=== PATIENT | female | born 1945 | race Caucasian/White ===

== ENCOUNTER 2018-12-01 08:00 | Day surgery (SDC) | payer OTHER ==
[~2018-12-01] VITALS: Ht 152.4 cm; Wt 126.1 kg
[~2018-12-01 08:00] MED LIST: ALBU90OI INH; ALBU90OI6 INH; ALBU90OI61 INH; ASPI325 PO; ASPI325EC; ASPI81CH PO; ASPI81EC PO; BACITO TP; CEPH500 PO; CHOL10002 PO; CIPRO500 MG PO; CLOP75 PO; CODACE60 PO; CRANBERRY PO; CYAN500 PO; DOCU100 PO; Docusate Sodiu1 EACH PO; ERGO400 PO; FLUO10 PO; FLUO20 PO; GLIP10ER PO; Hair, Skin & N1 EACH PO; Humalog Mi100 UNIT/5; Humulin 70-30 V10 ML SC; INSU7030P SC; INSU7030P SUBQ; INSULANI SC; INSULIN 70/30 SC; Keflex500 MG PO; MAGNESIUM OXID500 MG PO; METF500 PO; METO10 PO; MIRALAX17 GM PO; MUPI2TO TOP; Motion Sickness25 M1 PO; NAPR220 PO; NOVOLIN 70100 UNIT/1; OMEP20ER PO; ONDA4ODT MM; ONDA8ODT MM; POTCHL20ER PO; PROZAC20 MG PO; Prilosec Otc20 MG PO; Pyridium100 MG PO; ROXICODONE5 MG PO; RXONDA4ODT MM; SULTRIDS PO; THEO300ER PO; TRAM50; TRIHYD253A PO; TRIHYD253B PO; TYLENOL WITH CODEINE; Vitamin D2000 UNIT PO
--- NOTE | 2018-12-01 09:04 | NUR ---
History, Chart, Medications and Allergies reviewed before start of procedure.Patient confirms NPO status and agrees with scheduled surgery. Patient states colon prep results clear.Lungs clear T/O to Auscultation.
--- NOTE | 2018-12-01 09:23 | NUR ---
12/01/18 0923 Ruby Valadez PROCEDURE ROOM ENDO #1.MONITOR INTACT WITH CONTINUOUS PULSE OXIMETRY AND INTERMITTENT BP.
--- NOTE | 2018-12-01 10:42 | NUR ---
Patient States Post-Procedure ride home has been arranged. Discharge instructions reviewed with patient. Patient verbalizes understanding. Copy given to patient to take home. Discharged via wheelchair to private car for ride home.
== END 2018-12-01 10:35 | disposition home or self-care (01) ==
LOC: ORSCMMR 08:00 → ORD 09:30 → ORSCMMR 09:30
PROVIDERS: Surgery
PROC: 0DJD8ZZ Inspection of Lower Intestinal Tract, Via Natural or Artificial Opening Endoscopic (ICD-10-PCS; principal; 2018-12-01 09:30)
DX: R19.4 Change in bowel habit (principal); K62.5 Hemorrhage of anus and rectum; Z86.010 Personal history of colon polyps; K64.8 Other hemorrhoids; I12.9 Hypertensive chronic kidney disease with stage 1 through stage 4 chronic kidney disease, or unspecified chronic kidney disease; E11.22 Type 2 diabetes mellitus with diabetic chronic kidney disease; N18.3 Chronic kidney disease, stage 3 (moderate); Z79.4 Long term (current) use of insulin; Z79.84 Long term (current) use of oral hypoglycemic drugs; I48.91 Unspecified atrial fibrillation; K21.9 Gastro-esophageal reflux disease without esophagitis; F17.210 Nicotine dependence, cigarettes, uncomplicated; J45.909 Unspecified asthma, uncomplicated; Z79.82 Long term (current) use of aspirin; Z79.899 Other long term (current) drug therapy; E66.01 Morbid (severe) obesity due to excess calories; Z68.43 Body mass index [BMI] 50.0-59.9, adult
CPT/HCPCS: 82947; J2250; J2704; J7120

== ENCOUNTER 2021-04-17 21:19 | Inpatient (IN) | payer OTHER ==
[~2021-04-17] VITALS: Ht 154.9 cm; Wt 111.4 kg
[~2021-04-17 21:19] MED LIST changes: -ASPI325 PO; -PROZAC20 MG PO; +Prozac20 MG PO
[2021-04-17 21:43] LABS: BASOPHILS ABSOLUTE AUTO 0.06 K/mm3 (0.00-0.23); BASOPHILS PERCENT AUTO 1 % (0-2); EOSINOPHILS ABSOLUTE AUTO 0.35 K/mm3 (0.00-0.68); EOSINOPHILS PERCENT AUTO 3 % (0-6); Hemoglobin 11.7 g/dL (11.5-16.0); IMMATURE GRAN ABSOLUTE AUTO 0.04 K/mm3 (0.00-0.10); IMMATURE GRAN PERCENT AUTO 0 % (0-1); LYMPHOCYTES ABSOLUTE AUTO 2.51 K/mm3 (0.84-5.20); LYMPHOCYTES PERCENT AUTO 22 % (21-46); MONOCYTES ABSOLUTE AUTO 1.16 K/mm3 (0.16-1.47); MONOCYTES PERCENT AUTO 10 % (4-13); Mean Corpuscular HGB 25.3 pg (26.0-34.0); Mean Corpuscular Volume 84 fL (80-100); Mean Platelet Volume 10.4 fL (9.1-12.4); NEUTROPHILS ABSOLUTE AUTO 7.21 K/mm3 (1.96-9.15); NEUTROPHILS PERCENT AUTO 64 % (41-73); Platelet Count 374 K/mm3 (150-400); RDW Coefficient Variation 16.3 % (11.7-14.2); RDW Standard Deviation 49.2 fL (35.1-46.3); Red Blood Cell Count 4.62 M/mm3 (3.80-5.20); White Blood Cell Count 11.33 K/mm3 (4.00-11.30)
[2021-04-17 22:02] LABS: Albumin, Blood 3.1 g/dL (3.4-5.0); Albumin/Globulin Ratio 0.6 (0.8-1.8); Bilirubin, Total 0.5 mg/dL (0.1-1.0); Bun/Creatinine Ratio 16.2 (12.0-20.0); Calcium, Blood 8.7 mg/dL (8.5-10.1); Creatinine, Blood 1.17 mg/dL (0.40-1.00); Globulin, Blood 5.1 g/dL (2.2-4.0); Potassium, Blood 2.9 mmol/L (3.5-5.5); Total Protein, Blood 8.2 g/dL (6.4-8.2)
[2021-04-18 00:12] LABS: Acetaminophen, Random <2.0 ug/mL (10.0-30.0); Ethanol (Alcohol), Blood, Med <3 mg/dL; Free Thyroxine 1.67 ng/dL (0.70-1.60); Salicylate <1.7 mg/dL (2.8-20.0)
[2021-04-18 00:19] LABS: Source, Urine Clean Catch
[2021-04-18 00:22] LABS: Bilirubin, Urine Neg (Neg); Blood, Urine 1+ (Neg); Glucose Qualitative, Urine Neg (Neg); Ketones, Urine 1+ (Neg); Leukocyte Esterase, Urine Neg (Neg); Nitrite, Urine Neg (Neg); Protein, Urine 3+ (Neg); Urobilinogen, Urine NORM (Normal)
[2021-04-18 00:24] LABS: Appearance, Urine Clear (Clear); Color, Urine Yellow (P-Yellow)
[2021-04-18 00:28] LABS: Bacteria Mod /hpf; Squamous Epithelial Cells Mod /hpf (Few); White Blood Cells, Urine 0-2 /hpf (0-5)
[2021-04-18 00:36] LABS: Influenza A, PCR NEGATIVE (NEGATIVE); Influenza B, PCR NEGATIVE (NEGATIVE); Resp Syncytial Virus, PCR NEGATIVE (NEGATIVE); SARS-Cov-2 (COVID-19) PCR, MMC NEGATIVE (NEGATIVE)
[2021-04-18 00:43] LABS: U Amphetamine Screen Not Detected; U Barbituate Screen Not Detected; U Benzodiazapine Screen Not Detected; U Buprenorphine Screen Not Detected; U Cannabinoids Screen Not Detected; U Cocaine Screen Not Detected; U Methadone Screen Not Detected; U Methamphetamine Screen Not Detected; U Opiates Screen Not Detected; U Oxycodone Screen Not Detected; U Phencyclidine Screen Not Detected; U Propoxyphene Screen Not Detected
[2021-04-18 04:59] LABS: BASOPHILS ABSOLUTE AUTO 0.05 K/mm3 (0.00-0.23); BASOPHILS PERCENT AUTO 0 % (0-2); EOSINOPHILS ABSOLUTE AUTO 0.09 K/mm3 (0.00-0.68); EOSINOPHILS PERCENT AUTO 1 % (0-6); Hematocrit 34.7 % (33.0-51.0); Hemoglobin 10.5 g/dL (11.5-16.0); IMMATURE GRAN ABSOLUTE AUTO 0.07 K/mm3 (0.00-0.10); IMMATURE GRAN PERCENT AUTO 1 % (0-1); LYMPHOCYTES ABSOLUTE AUTO 1.26 K/mm3 (0.84-5.20); LYMPHOCYTES PERCENT AUTO 10 % (21-46); MONOCYTES ABSOLUTE AUTO 1.09 K/mm3 (0.16-1.47); MONOCYTES PERCENT AUTO 9 % (4-13); Mean Corpuscular HGB 25.7 pg (26.0-34.0); Mean Corpuscular HGB Conc 30.3 g/dL (31.5-36.5); Mean Corpuscular Volume 85 fL (80-100); Mean Platelet Volume 10.9 fL (9.1-12.4); NEUTROPHILS ABSOLUTE AUTO 9.64 K/mm3 (1.96-9.15); NEUTROPHILS PERCENT AUTO 79 % (41-73); Platelet Count 317 K/mm3 (150-400); RDW Coefficient Variation 16.1 % (11.7-14.2); RDW Standard Deviation 49.4 fL (35.1-46.3); Red Blood Cell Count 4.09 M/mm3 (3.80-5.20)
[2021-04-18 05:12] LABS: Bun/Creatinine Ratio 18.4 (12.0-20.0); Calcium, Blood 8.1 mg/dL (8.5-10.1); Creatinine, Blood 1.14 mg/dL (0.40-1.00); Potassium, Blood 3.5 mmol/L (3.5-5.5)
[2021-04-18 05:41] LABS: CHOL/HDL RATIO 3.8; Cholesterol 126 mg/dL (50-200); HDL Cholesterol 33 mg/dL (>39); LDL/HDL RATIO 2.2; Low Density Lipoprotein Chol 73 mg/dL (0-110); Triglycerides 100 mg/dL (30-160); Very Low Density Lipoprot Chol 20 mg/dL (6-32)
--- NOTE | 2021-04-18 07:43 | NUR ---
SHIFT SUMMARY PATIENT ARRIVED TO ROOM 346 VIA STRETCHER AT 0355. SHE IS ABLE TO ANSWER ORIENTATION QUESTIONS APPROPRIATELY BUT IS OTHERWISE CONFUSED AND IMPULSIVE. HAD DIFFICULTY FOLLOWING DIRECTIONS. SHE HAD NO COMPLAINTS OF PAIN OR SHORTNESS OF BREATH. ONLY BECAME AGITATED WHEN NEEDING TO USE THE RESTROOM. NO ACUTE ISSUES NOTED OVERNIGHT. BED IN LOWEST POSITION WITH WHEELS LOCKED AND ALARM ON. CALL LIGHT WITHIN REACH. REPORT GIVEN TO ONCOMING RN.
--- NOTE | 2021-04-18 16:08 | NUR ---
SHIFT SUMMARY PT RESTING QUIETLY AT START OF SHIFT. WOKE EASILY FOR CARE. IV K+ INFUSING PER EMAR. PT CONFUSED AND IMPULSIVE; BED ALARM ON FOR SAFETY. MORBIDLY OBESE MAKING MOBILITY DIFFICULT. PT ASSIST UP TO BSC USING GB AND 2P ASSIST. PT HAS BEEN CONTINENT TO PRESENT; UP FREQUENTLY AT TIMES. SON AND GRANDSON HERE THIS AFTERNOON TO CK ON PT. UPDATE GIVEN. DR CHURCH IN TO SEE PT AND DISCUSS PLAN OF CARE WITH SON. PT PRESENTLY UP TO CHAIR AT BS. PT IS RESTLESS AND NO SOONER UP TO CHAIR AND SHE WANTS BACK INTO BED. PT PULLED IV TO LAC THIS AM. IV TO RW STILL PATENT AND SL. SON REMAINS IN RM AT BS. DENIED FURTHER NEEDS AT THIS TIME. CALL LT IN REACH.
--- NOTE | 2021-04-19 02:48 | NUR ---
PHYSICIAN COMMUNICATION CONTACTED DR REVELES TO NOTIFY HIM THAT THE PATIENT HADN'T VOIDED YET THIS SHIFT AND BLADDER SCAN SHOWED 455 ML URINE IN BLADDER. DR REVELES ORDERED FOR THE PATIENT TO BE STRAIGHT CATHED NOW AND BLADDER SCANNED AGAIN IN 6 HOURS.
[2021-04-19 05:01] LABS: Hematocrit 32.4 % (33.0-51.0); Hemoglobin 9.8 g/dL (11.5-16.0); Mean Corpuscular HGB 25.5 pg (26.0-34.0); Mean Corpuscular HGB Conc 30.2 g/dL (31.5-36.5); Mean Corpuscular Volume 84 fL (80-100); Mean Platelet Volume 10.3 fL (9.1-12.4); Platelet Count 308 K/mm3 (150-400); RDW Coefficient Variation 16.2 % (11.7-14.2); RDW Standard Deviation 48.6 fL (35.1-46.3); Red Blood Cell Count 3.84 M/mm3 (3.80-5.20); White Blood Cell Count 9.95 K/mm3 (4.00-11.30)
[2021-04-19 05:31] LABS: Albumin, Blood 2.8 g/dL (3.4-5.0); Albumin/Globulin Ratio 0.7 (0.8-1.8); Bilirubin, Total 0.5 mg/dL (0.1-1.0); Bun/Creatinine Ratio 14.4 (12.0-20.0); Creatinine, Blood 1.39 mg/dL (0.40-1.00); Globulin, Blood 4.2 g/dL (2.2-4.0); Potassium, Blood 3.3 mmol/L (3.5-5.5)
--- NOTE | 2021-04-19 06:26 | NUR ---
SHIFT SUMMARY PATIENT ALERT AND ORIENTED X2. HAS DIFFICULTY FOLLOWING DIRECTIONS. PATIENT MEDICATED PER EMAR FOR PAIN. WAS EXPERIENCING SOME SHORTNESS OF BREATH. PLACED PATIENT ON O2 FOR COMFORT. RT EVALUATED THE PATIENT. PATIENT HAD TO BE STRAIGHT CATHED FOR URINARY RETENTION. PATIENT COMPLAINED OF BEING DIZZY THIS MORNING AND BLOOD SUGAR FROM LAB DRAW WAS 67. PATIENT GIVEN SOME JUICE. BED IN LOWEST POSITION WITH WHEELS LOCKED AND ALARM ON. CALL LIGHT WITHIN REACH. REPORT GIVEN TO ONCOMING RN.
--- NOTE | 2021-04-19 18:32 | NUR ---
SHIFT SUMMARY PATIENT SITTING UP IN CHAIR EATING DINNER. PATIENT A&O X2. 2PA UP TO BSC AND CHAIR WITH WALKER AND GAIT BELT. PATIENT ON TELE A-FIB 90. PATIENT ON RA. UNPRODUCTIVE COUGH PRESENT. RECEIVING IV ANTIBIOTICS. FAMILY AT BEDSIDE T/O MOST OF SHIFT. BED IN LOW POSITION WITH CALL LIGHT IN REACH. WILL CONTINUE TO MONITOR.
[2021-04-20 08:29] LABS: Hematocrit 34.2 % (33.0-51.0); Hemoglobin 10.1 g/dL (11.5-16.0); Mean Corpuscular HGB 25.4 pg (26.0-34.0); Mean Corpuscular HGB Conc 29.5 g/dL (31.5-36.5); Mean Corpuscular Volume 86 fL (80-100); Mean Platelet Volume 10.2 fL (9.1-12.4); Platelet Count 323 K/mm3 (150-400); RDW Coefficient Variation 16.2 % (11.7-14.2); RDW Standard Deviation 50.6 fL (35.1-46.3); Red Blood Cell Count 3.98 M/mm3 (3.80-5.20); White Blood Cell Count 9.06 K/mm3 (4.00-11.30)
[2021-04-20 08:58] LABS: Albumin, Blood 2.8 g/dL (3.4-5.0); Albumin/Globulin Ratio 0.7 (0.8-1.8); Bilirubin, Total 0.5 mg/dL (0.1-1.0); Bun/Creatinine Ratio 14.3 (12.0-20.0); Calcium, Blood 8.3 mg/dL (8.5-10.1); Creatinine, Blood 1.33 mg/dL (0.40-1.00); Globulin, Blood 4.3 g/dL (2.2-4.0); Magnesium, Blood 1.7 mg/dL (1.6-2.4); Total Protein, Blood 7.1 g/dL (6.4-8.2)
--- NOTE | 2021-04-20 16:38 | NUR ---
SHIFT SUMMARY: PATIENT A&O X3. HAD SOME DIFFICULTY FOLLOWING DIRECTIONS. SHE IS PLEASANTLY CONFUSED. PT GOT UP TO THE COMMODE WITH A WALKER, GAIT BELT, AND ONE PERSON ASSIST. PT ON TELE A FIB. SHE IS RECIEVING IV ANTIBIOTCS. SHE HAD A COUGH WITH THIN LIQUIDS. PT WAS HARD OF SEEING OUT OF HER RIGHT EYE. DENIES ANY PAIN OR DISCOMFORT. BED AND CHAIR ALARM ARE SET. BED IS IN LOWEST POSITION WITH THE CALL LIGHT IN REACH.
--- NOTE | 2021-04-20 17:44 | NUR ---
REVIEWED DOCUMENTATION DOWN BY ELMER, STUDENT NURSE AND I AGREE WITH HER CHARTING ON THIS PATIENT. PATIENT HAD DIFFICULTY WITH THIN LIQUIDS THIS MORNING AND COUGHED FOLLOWING HER PILLS THIS AM. PATIENT WELL ONCE STRAWS WERE REMOVED AND PILLS GIVEN THIS EVENING WITH APPLESAUCE.
--- NOTE | 2021-04-21 04:05 | NUR ---
SHIFT SUMMARY A/OX2, PLEASANTLY CONFUSED. UP 1 ASSIST WITH FWW TO BSC. NONPRODUCTIVE COUGH NOTED. DENIES PAIN OR SOB. VSS, NO ACUTE CHANGES AT THIS TIME. BED IN LOWEST POSITION WITH CALL LIGHT IN REACH. WILL CONTINUE TO MONITOR AND REPORT TO ONCOMING RN.
[2021-04-21 08:59] LABS: Hematocrit 34.3 % (33.0-51.0); Hemoglobin 10.3 g/dL (11.5-16.0); Mean Corpuscular HGB 25.9 pg (26.0-34.0); Mean Corpuscular Volume 86 fL (80-100); Mean Platelet Volume 10.5 fL (9.1-12.4); Platelet Count 337 K/mm3 (150-400); RDW Coefficient Variation 16.2 % (11.7-14.2); RDW Standard Deviation 50.5 fL (35.1-46.3); Red Blood Cell Count 3.98 M/mm3 (3.80-5.20); White Blood Cell Count 9.87 K/mm3 (4.00-11.30)
[2021-04-21] MEDS ORDERED: LISI5 PO (09:36)
[2021-04-21] MEDS ORDERED: BASAGLAR K100 UNIT/3 SC (09:37)
[2021-04-21] MEDS ORDERED: FURO40 PO (09:37)
[2021-04-21] MEDS ORDERED: FLUT1DIS2 INH (09:38)
[2021-04-21] MEDS ORDERED: ATOR80 PO (11:33)
[2021-04-21] MEDS ORDERED: XARELTO20 MG PO (11:33)
[2021-04-21] MEDS ORDERED: AMOCLA875 PO (11:34)
--- NOTE | 2021-04-21 12:14 | NUR ---
Received referral from nurse vp care management (Giovanny Munoz) on 04/21/2021. Patient is to discharge 04/21/2021 with orders for home health and elected [facility]. Met with patient to further discuss the above. Patient is agreeable to the above. Discussed homebound status definition with patient. Patient verbalized understanding. Discussed what home health is vs what it is not (in home caregivers/housekeeping). Patient verbalized understanding. Discussed the next steps in the process of an initial assessment to determine frequency of visits. Again patient verbalized understanding. Offered a chance for patient to ask questions regarding the above of which there were none. Gathered all supporting documentation for referral (face sheet, face to face, med list, H&P, and most recent PT assessment) and sent to [facility] for review. No further interventions required. Sherrell Buck Referral Liaison
--- NOTE | 2021-04-21 16:57 | NUR ---
PATIENT D/C'D TO HOME WITH [employer]. DC INSTRUCTIONS AND EDUCATION DISCUSSED WITH PATIENT AND FAMILY AND COPY PROVIDED. RX MEDICATIONS FAXED TO [facility]. PATIENT DENIES ANY FURTHER QUESTIONS OR CONCERNS.
[2021-05-13] MEDS ORDERED: MACRODANTIN PO (14:48)
[2021-05-13] MEDS ORDERED: JANTOVEN5 M2 PO (14:49)
[2021-05-13] MEDS ORDERED: Ventolin/Prove6.7 GM INH (14:50)
[2021-05-13] MEDS ORDERED: POTCHL20ER PO (14:51)
== END 2021-04-21 16:58 | disposition home health service (06) | DRG 69 ==
LOC: ER 21:19 → MEDS 21:20 → ER 04-18 02:44 → MEDS 04-18 02:51
PROVIDERS: Emergency Medicine; Family Medicine; Internal Medicine; ADMIT Internal Medicine
DX: G45.9 Transient cerebral ischemic attack, unspecified (principal); G92.8 Other toxic encephalopathy; Z68.42 Body mass index [BMI] 45.0-49.9, adult; N39.0 Urinary tract infection, site not specified; G81.94 Hemiplegia, unspecified affecting left nondominant side; J45.909 Unspecified asthma, uncomplicated; M19.90 Unspecified osteoarthritis, unspecified site; Z51.5 Encounter for palliative care; Z20.822 Contact with and (suspected) exposure to COVID-19; F17.210 Nicotine dependence, cigarettes, uncomplicated; E66.9 Obesity, unspecified; I12.9 Hypertensive chronic kidney disease with stage 1 through stage 4 chronic kidney disease, or unspecified chronic kidney disease; N18.30 Chronic kidney disease, stage 3 unspecified; E11.22 Type 2 diabetes mellitus with diabetic chronic kidney disease; I48.91 Unspecified atrial fibrillation; E87.6 Hypokalemia; B96.20 Unspecified Escherichia coli [E. coli] as the cause of diseases classified elsewhere; B95.2 Enterococcus as the cause of diseases classified elsewhere; Z86.14 Personal history of Methicillin resistant Staphylococcus aureus infection; Z90.49 Acquired absence of other specified parts of digestive tract; Z90.89 Acquired absence of other organs; Z90.710 Acquired absence of both cervix and uterus; Z88.7 Allergy status to serum and vaccine; Z88.8 Allergy status to other drugs, medicaments and biological substances; Z79.82 Long term (current) use of aspirin; Z79.84 Long term (current) use of oral hypoglycemic drugs; Z79.899 Other long term (current) drug therapy
CPT/HCPCS: 0241U; 36415; 70496; 70498; 71045; 80048; 80053; 80061; 81001; 82140; 82947; 83036; 83605; 83735; 84145; 84439; 84443; 84484; 85025; 85027; 85651; 87077; 87086; 87186; 92610; 93005; 93010; 93306; 94640; 96365; 96372; 96375; 96376; 97116; 97162; 97166; 97530; 97535; 99285-25; A9270; G0378; G0480; J0295; J0696; J0780; J1630; J1644; J1650; J1815; J1885; J2405; J3411; J3475; J7030; J7050; Q9967

== ENCOUNTER → 2021-05-07 | Outpatient (CLI) | payer OTHER ==
[~2021-05-07] MED LIST changes: +AMOCLA875 PO; +ATOR80 PO; +BASAGLAR K100 UNIT/3 SC; +FLUT1DIS2 INH; +FURO40 PO; +LISI5 PO; +XARELTO20 MG PO
== END | disposition home or self-care (01) ==
LOC: LAB SHORT 12:00 → LAB 12:00
DX: R10.9 Unspecified abdominal pain (principal)
CPT/HCPCS: 87077; 87086; 87186

== ENCOUNTER 2021-06-12 08:19 | Emergency (ER) | payer OTHER ==
[~2021-06-12] VITALS: Ht 154.9 cm; Wt 113.8 kg
[~2021-06-12 08:19] MED LIST changes: +JANTOVEN5 M2 PO; +MACRODANTIN PO; +Ventolin/Prove6.7 GM INH
[2021-06-12] MEDS ORDERED: TRAM50 PO (09:21)
== END 2021-06-12 09:50 | disposition home or self-care (01) ==
LOC: ER 08:19
DX: S16.1XXA Strain of muscle, fascia and tendon at neck level, initial encounter (principal); J45.909 Unspecified asthma, uncomplicated; I12.9 Hypertensive chronic kidney disease with stage 1 through stage 4 chronic kidney disease, or unspecified chronic kidney disease; E11.22 Type 2 diabetes mellitus with diabetic chronic kidney disease; N18.30 Chronic kidney disease, stage 3 unspecified; K21.9 Gastro-esophageal reflux disease without esophagitis; Z79.01 Long term (current) use of anticoagulants; Z79.899 Other long term (current) drug therapy; Z79.4 Long term (current) use of insulin; X58.XXXA Exposure to other specified factors, initial encounter; Y92.9 Unspecified place or not applicable; Z79.82 Long term (current) use of aspirin; Z88.6 Allergy status to analgesic agent; Z88.7 Allergy status to serum and vaccine
CPT/HCPCS: 99283

== ENCOUNTER 2021-08-28 15:27 | Emergency (ER) | payer OTHER ==
[~2021-08-28] VITALS: Ht 154.9 cm; Wt 113.8 kg
[~2021-08-28 15:27] MED LIST changes: +TRAM50 PO
[2021-08-28 15:44] LABS: BASOPHILS ABSOLUTE AUTO 0.09 K/mm3 (0.00-0.23); BASOPHILS PERCENT AUTO 1 % (0-2); EOSINOPHILS ABSOLUTE AUTO 0.52 K/mm3 (0.00-0.68); EOSINOPHILS PERCENT AUTO 7 % (0-6); Hematocrit 27.4 % (33.0-51.0); Hemoglobin 8.5 g/dL (11.5-16.0); IMMATURE GRAN ABSOLUTE AUTO 0.02 K/mm3 (0.00-0.10); IMMATURE GRAN PERCENT AUTO 0 % (0-1); LYMPHOCYTES ABSOLUTE AUTO 1.45 K/mm3 (0.84-5.20); LYMPHOCYTES PERCENT AUTO 18 % (21-46); MONOCYTES PERCENT AUTO 12 % (4-13); Mean Corpuscular HGB 23.9 pg (26.0-34.0); Mean Corpuscular Volume 77 fL (80-100); Mean Platelet Volume 10.7 fL (9.1-12.4); NEUTROPHILS ABSOLUTE AUTO 4.97 K/mm3 (1.96-9.15); NEUTROPHILS PERCENT AUTO 62 % (41-73); Platelet Count 308 K/mm3 (150-400); RDW Coefficient Variation 18.6 % (11.7-14.2); RDW Standard Deviation 51.3 fL (35.1-46.3); Red Blood Cell Count 3.55 M/mm3 (3.80-5.20); White Blood Cell Count 8.05 K/mm3 (4.00-11.30)
[2021-08-28 15:57] LABS: Albumin, Blood 2.9 g/dL (3.4-5.0); Albumin/Globulin Ratio 0.7 (0.8-1.8); Bilirubin, Total 0.6 mg/dL (0.1-1.0); Bun/Creatinine Ratio 17.9 (12.0-20.0); Calcium, Blood 8.8 mg/dL (8.5-10.1); Creatinine, Blood 1.12 mg/dL (0.40-1.00); Globulin, Blood 4.2 g/dL (2.2-4.0); Potassium, Blood 3.7 mmol/L (3.5-5.5); Total Protein, Blood 7.1 g/dL (6.4-8.2)
[2021-11-05] MEDS ORDERED: CEPH500 PO (08:38)
== END 2021-08-28 17:51 | disposition home or self-care (01) ==
LOC: ER 15:27
PROVIDERS: Emergency Medicine
DX: R07.89 Other chest pain (principal); I12.9 Hypertensive chronic kidney disease with stage 1 through stage 4 chronic kidney disease, or unspecified chronic kidney disease; E11.22 Type 2 diabetes mellitus with diabetic chronic kidney disease; N18.30 Chronic kidney disease, stage 3 unspecified; J45.909 Unspecified asthma, uncomplicated
CPT/HCPCS: 71046; 80053; 83690; 84484; 85025; 93005; 93010; 99285-25

== ENCOUNTER 2021-10-12 07:06 | Inpatient (IN) | payer OTHER ==
[~2021-10-12] VITALS: Ht 157.5 cm; Wt 132.3 kg
[2021-10-12 07:50] LABS: Source, Urine Straight Cath
[2021-10-12 07:54] LABS: Bilirubin, Urine Neg (Neg); Blood, Urine 5+ (Neg); Glucose Qualitative, Urine Neg (Neg); Ketones, Urine Neg (Neg); Leukocyte Esterase, Urine 2+ (Neg); Nitrite, Urine Neg (Neg); Protein, Urine 3+ (Neg); Urobilinogen, Urine 1+ (Normal)
[2021-10-12 08:01] LABS: Appearance, Urine Hazy (Clear); Color, Urine Yellow (P-Yellow)
[2021-10-12 08:02] LABS: Bacteria Many /hpf; Red Blood Cells, Urine TNTC /hpf (0-2); Squamous Epithelial Cells Few /hpf (Few); White Blood Cells, Urine TNTC /hpf (0-5)
[2021-10-12 08:29] LABS: BASOPHILS ABSOLUTE AUTO 0.08 K/mm3 (0.00-0.23); BASOPHILS PERCENT AUTO 1 % (0-2); EOSINOPHILS ABSOLUTE AUTO 0.04 K/mm3 (0.00-0.68); EOSINOPHILS PERCENT AUTO 0 % (0-6); Hematocrit 29.3 % (33.0-51.0); Hemoglobin 9.2 g/dL (11.5-16.0); IMMATURE GRAN ABSOLUTE AUTO 0.06 K/mm3 (0.00-0.10); IMMATURE GRAN PERCENT AUTO 1 % (0-1); LYMPHOCYTES PERCENT AUTO 24 % (21-46); MONOCYTES ABSOLUTE AUTO 1.69 K/mm3 (0.16-1.47); MONOCYTES PERCENT AUTO 15 % (4-13); Mean Corpuscular HGB 24.4 pg (26.0-34.0); Mean Corpuscular HGB Conc 31.4 g/dL (31.5-36.5); Mean Corpuscular Volume 78 fL (80-100); Mean Platelet Volume 9.9 fL (9.1-12.4); NEUTROPHILS ABSOLUTE AUTO 6.52 K/mm3 (1.96-9.15); NEUTROPHILS PERCENT AUTO 59 % (41-73); Platelet Count 311 K/mm3 (150-400); RDW Coefficient Variation 19.6 % (11.7-14.2); RDW Standard Deviation 54.3 fL (35.1-46.3); Red Blood Cell Count 3.77 M/mm3 (3.80-5.20); White Blood Cell Count 10.99 K/mm3 (4.00-11.30)
[2021-10-12 08:37] LABS: Base Excess Venous -0.3 mmol/L; Bicarbonate Venous 24.4 mmol/L (24.0-30.0); PCO2 Venous 35.6 mmHg (38-42); pH Blood Venous 7.44 (7.34-7.37)
[2021-10-12 08:47] LABS: Albumin, Blood 2.8 g/dL (3.4-5.0); Albumin/Globulin Ratio 0.6 (0.8-1.8); Bilirubin, Direct 0.5 mg/dL (0.0-0.3); Bilirubin, Indirect 0.6 mg/dL (0.1-0.7); Bilirubin, Total 1.1 mg/dL (0.1-1.0); Bun/Creatinine Ratio 22.5 (12.0-20.0); Calcium, Blood 8.8 mg/dL (8.5-10.1); Creatinine, Blood 1.2 mg/dL (0.40-1.00); Globulin, Blood 4.8 g/dL (2.2-4.0); Magnesium, Blood 1.7 mg/dL (1.6-2.4); Potassium, Blood 4.3 mmol/L (3.5-5.5); Total Protein, Blood 7.6 g/dL (6.4-8.2)
[2021-10-12 08:50] LABS: Influenza A, PCR NEGATIVE (NEGATIVE); Influenza B, PCR NEGATIVE (NEGATIVE); Resp Syncytial Virus, PCR NEGATIVE (NEGATIVE); SARS-Cov-2 (COVID-19) PCR, MMC NEGATIVE (NEGATIVE)
[2021-10-12] MEDS ORDERED: [UNRECOGNIZED DRUG - CODE] PO (10:27)
[2021-10-12] MEDS ORDERED: ATENOLOL25 MG PO (10:27)
[2021-10-12] MEDS ORDERED: NEURONTIN300 MG PO (10:27)
[2021-10-12 11:17] LABS: Prothrombin Time Results >90.0 Sec (9.7-11.5)
[2021-10-12 11:20] LABS: International Normalized Ratio >10.00
--- NOTE | 2021-10-12 12:50 | NUR ---
PT ARRIVED TO UNIT FROM ER
--- NOTE | 2021-10-12 17:05 | NUR ---
SHIFT SUMMARY PT A&OX 4 AND IN PLEASENT MOOD SINCE ARRIVAL FROM ER. PT WORKED W/ PHYSICAL THERAPY THIS SHIFT, PT ABLE TO STAND PIVOT TO BSC. 1X. PT BECOMES TEARFUL PERIODICALLY, TALKING ABOUT 4 KIDS AND ONLY ONE WILL PROVIDE HELP. SHE STATES, "I WANT TO GO TO ASSISTED LIVING TO GIVE HIM A BREAK" CALL LIGHT W/IN REACH. VSS.
[2021-10-13 05:41] LABS: BASOPHILS ABSOLUTE AUTO 0.02 K/mm3 (0.00-0.23); BASOPHILS PERCENT AUTO 0 % (0-2); EOSINOPHILS PERCENT AUTO 0 % (0-6); Hematocrit 28.8 % (33.0-51.0); Hemoglobin 8.8 g/dL (11.5-16.0); IMMATURE GRAN ABSOLUTE AUTO 0.07 K/mm3 (0.00-0.10); IMMATURE GRAN PERCENT AUTO 1 % (0-1); LYMPHOCYTES ABSOLUTE AUTO 1.17 K/mm3 (0.84-5.20); LYMPHOCYTES PERCENT AUTO 13 % (21-46); MONOCYTES PERCENT AUTO 11 % (4-13); Mean Corpuscular HGB Conc 30.6 g/dL (31.5-36.5); Mean Corpuscular Volume 79 fL (80-100); Mean Platelet Volume 10.8 fL (9.1-12.4); NEUTROPHILS ABSOLUTE AUTO 6.69 K/mm3 (1.96-9.15); NEUTROPHILS PERCENT AUTO 75 % (41-73); Platelet Count 326 K/mm3 (150-400); RDW Coefficient Variation 19.8 % (11.7-14.2); RDW Standard Deviation 56.5 fL (35.1-46.3); Red Blood Cell Count 3.67 M/mm3 (3.80-5.20); White Blood Cell Count 8.95 K/mm3 (4.00-11.30)
[2021-10-13 06:08] LABS: Magnesium, Blood 1.9 mg/dL (1.6-2.4)
[2021-10-13 06:09] LABS: Albumin, Blood 2.6 g/dL (3.4-5.0); Anion Gap 10 mmol/L (6-16); Blood Urea Nitrogen 34 mg/dL (8-24); Bun/Creatinine Ratio 28.6 (12.0-20.0); CO2, Blood 21 mmol/L (21-32); Calcium, Blood 8.1 mg/dL (8.5-10.1); Chloride, Blood 101 mmol/L (98-108); Creatinine, Blood 1.19 mg/dL (0.40-1.00); Glomerular Filtration Rate 47 (60-); Glucose, Blood 337 mg/dL (70-99); Phosphorus, Blood 3.6 mg/dL (2.5-4.9); Potassium, Blood 4.6 mmol/L (3.5-5.5); Prothrombin Time Results >90.0 Sec (9.7-11.5); Sodium, Blood 132 mmol/L (136-145)
[2021-10-13 06:11] LABS: International Normalized Ratio >10.00
--- NOTE | 2021-10-13 18:38 | NUR ---
END OF SHIFT REPORT: PATIENT UP TO CHAIR, BEDSIDE COMMODE AND SHOWER CHAIR. PATIENT IS ABLE TO TOLERATE A STAND PIVOT OR A FEW STEPS WITH FWW AND GAIT BELT, 1-2 ASSIST. MINIMAL SHORTNESS OF BREATH NOTED WITH ACTIVITY. NO SHORTNESS OF BREATH NOTED AT REST. PATIENT STABLE ON ROOM AIR WITH SPO2 96-98%. PATIENT UP TO BSC FREQUENTLY WITH THE LASIX. PATIENT DENIES BURNING WITH VOIDING OR DIFFICULTY VOIDING. PATIENT CONTINENT. PATIENT HAS BRUSING ON HER UPPER BACK AND UPPER LEFT ARM. THEY ARE A DARK PURPLE. BRUISING MAINTAINED THE SAME SIZE THROUGHOUT THE SHIFT. NO SIGNS/SYMPTOMS OF BLEEDING DURING THE SHIFT. PATIENT REPORTS SADNESS AT TIMES AND IS TEARFUL. PATIENT EASILY CALMS WITH CONVERSATIONS ABOUT HER LIFE AND FAMILY. PATIENT REPORTS SHE IS SATISFIED WITH HER LIFE, BUT IS FRUSTRATED WITH HER LACK OF MOBILITY AND DECONDITIONING.
[2021-10-14 04:55] LABS: BASOPHILS ABSOLUTE AUTO 0.02 K/mm3 (0.00-0.23); BASOPHILS PERCENT AUTO 0 % (0-2); EOSINOPHILS ABSOLUTE AUTO 0.01 K/mm3 (0.00-0.68); EOSINOPHILS PERCENT AUTO 0 % (0-6); Hematocrit 28.5 % (33.0-51.0); Hemoglobin 8.8 g/dL (11.5-16.0); IMMATURE GRAN PERCENT AUTO 1 % (0-1); LYMPHOCYTES ABSOLUTE AUTO 1.52 K/mm3 (0.84-5.20); LYMPHOCYTES PERCENT AUTO 12 % (21-46); MONOCYTES ABSOLUTE AUTO 1.01 K/mm3 (0.16-1.47); MONOCYTES PERCENT AUTO 8 % (4-13); Mean Corpuscular HGB 24.2 pg (26.0-34.0); Mean Corpuscular HGB Conc 30.9 g/dL (31.5-36.5); Mean Corpuscular Volume 79 fL (80-100); Mean Platelet Volume 10.6 fL (9.1-12.4); NEUTROPHILS ABSOLUTE AUTO 9.87 K/mm3 (1.96-9.15); NEUTROPHILS PERCENT AUTO 79 % (41-73); NRBC ABSOLUTE 0.03 K/mm3 (0.00-0.02); NRBC Auto 0.2 /100 WBC (0.0-0.2); Platelet Count 356 K/mm3 (150-400); RDW Coefficient Variation 19.9 % (11.7-14.2); RDW Standard Deviation 56.1 fL (35.1-46.3); Red Blood Cell Count 3.63 M/mm3 (3.80-5.20); White Blood Cell Count 12.53 K/mm3 (4.00-11.30)
[2021-10-14 05:13] LABS: Magnesium, Blood 2.1 mg/dL (1.6-2.4)
[2021-10-14 05:14] LABS: Albumin, Blood 2.8 g/dL (3.4-5.0); Anion Gap 10 mmol/L (6-16); Blood Urea Nitrogen 40 mg/dL (8-24); Bun/Creatinine Ratio 31.2 (12.0-20.0); CO2, Blood 23 mmol/L (21-32); Calcium, Blood 8.5 mg/dL (8.5-10.1); Chloride, Blood 102 mmol/L (98-108); Creatinine, Blood 1.28 mg/dL (0.40-1.00); Glomerular Filtration Rate 43 (60-); Glucose, Blood 187 mg/dL (70-99); Phosphorus, Blood 3.3 mg/dL (2.5-4.9); Potassium, Blood 4.1 mmol/L (3.5-5.5); Sodium, Blood 135 mmol/L (136-145)
[2021-10-14 05:36] LABS: Prothrombin Time Results >90.0 Sec (9.7-11.5)
[2021-10-14 05:38] LABS: International Normalized Ratio >10.00
[2021-10-14 11:00] LABS: Percent Saturation 4.8 % (15.0-50.0)
--- NOTE | 2021-10-14 18:23 | NUR ---
SHIFT SUMMARY PT A&SO x3. VSS; SBP IN 130'S - 140'S, HR IN 70'S, O2 SATS >96% ON RA. PT DENIES SOB BUT STATES HER COUGH IS STILL PRESENT "BUT IMPROVING". PT UP TO BEDSIDE CHAIR MOST OF THE SHIFT. PT TO BSC FREQUENTLY W/LASIX; SBA W/FWW. PT TOLERATES WELL. NEW IV IN R FA PT "PULLED OUT OLD ONE LAST NIGHT BECAUSE IT WAS CATCHING ON EVERYTHING". NEW IV PATENT AND FLUSHES WELL. NO ACUTE CHANGES THROUGHOUT SHIFT. IMAGING SHOWS NO DVT. PT STILL STATES LEG AND CALF ARE TENDER. CALL LIGHT WITHIN REACH AND BED IN LOWEST POSITION.
--- NOTE | 2021-10-15 04:18 | NUR ---
SHIFT SUMMARY PT HAD AN UNEVENTFUL NIGHT. REMAINED IN THE RECLINER CHAIR THIS EVENING. SLEPT OFF AND ON. UP QUITE A BIT TO URINATE. PT TRANSFERED WELL WITH JUST A 1 ASSIST STAND PIVOT BUT REMAINS VERY WEAK AND SLIGHTLY UNSTEADY. PT IS LEGALLY BLIND, REPORTS THAT SHE ACCIDENTLY ATE SOME "LOTION" OR SOMETHING SIMILIAR TO JUST BEFORE THIS RN CAME ON TO SHIFT. TABLE CLEARED EXCEPT FOR DRINK CUP AND TISSUE BOX. PT HAS BEEN ON RA WITH O2 SATS > 90%. NAGGING COUGH WITH SMALL AMOUNTS OF BROWN/COLLADO SPUTUM CONTINUED INTERMITTENTLY THROUGH THE NIGHT. PT DID COMPLAIN OF PAIN TO RLE BUT ONLY WITH TOUCH OR MOVEMENT. MEDICATED X 1 W/ 50 MG ULTRAM WITH GOOD EFFECT. VITAL SIGNS STABLE. WILL CONTINUE TO MONITOR.
[2021-10-15 07:37] LABS: Prothrombin Time Results >90.0 Sec (9.7-11.5)
[2021-10-15 07:44] LABS: International Normalized Ratio >10.00
--- NOTE | 2021-10-15 18:37 | NUR ---
SHIFT SUMMARY PATIENT DENIES PAIN, NAUSEA, AND SHORTNESS OF BREATH. PATIENT IS A SBA WITH A FWW. PATIENT ABLE TO STAND WITHOUT ASSIST MULTIPLE TIMES THIS SHIFT. PT WORKED WITH PATIENT. PATIENT LUNCH CB 359, DR. FARRELL NOTIFIED, NEW ORDERS FOR LONG ACTING INSULIN 20U AT BEDTIME. PATIENT WAS WANTING INFORMATION ABOUT [facility] DIRECTED, TALKED WITH PATIENT AWHILE. PALLIATIVE CARE WAS GONE FOR THE DAY, BUT WILL CONTACT THEM TOMORROW FOR CONSULT. PATIENT IS EATING AND DRINKING WELL. PATIENT IS VERY PLEASANT AND COOPERATIVE WITH CARE.
--- NOTE | 2021-10-16 04:45 | NUR ---
SHIFT SUMMARY PT WAS RESTLESS THIS EVENING. ONLY SLEEPING MAYBE A FEW HOURS THROUGHOUT THE NIGHT. FREQUENT NAGGING COUGH WITH SMALL AMOUNTS OF BROWN/COLLADO SPUTUM. LUNG SOUNDS WHEEZY THROUGHOUT. PT CONTINUES TO REPORT PAIN TO RLE WITH MOVEMENT AND PLUERITIC PAIN FROM COUGHING. MEDICATED X 1 W/ ULTRAM. SON IN TO VISIT AT START OF SHIFT. PT DID WELL THIS EVENING STANDING WITH FWW MOSTLY INDEPENDENTLY AND PIVOT TRANFERING TO THE BSC. NO ACUTE CHANGES THIS EVENING. VITAL SIGNS STABLE.
[2021-10-16 05:39] LABS: Prothrombin Time Results 72.7 Sec (9.7-11.5)
[2021-10-16 06:10] LABS: International Normalized Ratio 7.93
--- NOTE | 2021-10-16 17:25 | NUR ---
SHIFT SUMMARY PATIENT DENIES PAIN, NAUSEA, AND SHORTNESS OF BREATH. PATIENT IS A SBA WITH A FWW. PATIENT FREQUENTLY USES BSC DUE TO DIURETICS. PATIENT AMBULATED IN ROOM WITH RN. PATIENT STRENGTH IMPROVING. PATIENT HOPEFUL TO GO HOME. PATIENT IS EATING AND DRINKING WELL. PATIENT CBG'S MUCH IMPROVED. PATIENT IS VERY PLEASANT AND COOPERATIVE WITH CARE.
--- NOTE | 2021-10-17 05:03 | NUR ---
SHIFT SUMMARY: PT IS ALERT AND ORIENTED WITH MINOR CONFUSION. PT IS CALM AND COOPERATIVE WITH CARE. PT IS A ONE PERSON ASSIST WITH FWW DURING AMBULATION AND TRANSFERS TO THE BSC. PT DENIES PAIN, NAUSEA, VOMITING, AND SOB. NO ACUTE CHANGES OR COMPLICATIONS THIS SHIFT. BED IN LOW POSITION, CALL LIGHT WITHIN REACH. WILL REPORT TO DAY NURSE.
[2021-10-17 05:48] LABS: International Normalized Ratio 3.46; Prothrombin Time Results 33.5 Sec (9.7-11.5)
--- NOTE | 2021-10-17 18:53 | NUR ---
SHIFT SUMMARY: PT A&0 PLESANT AND COOPERATIVE. PT WAS ABLE TO AMBULATE TO THE BATHROOM 1 PERSON ASSIST WITH FWW. PT WAS IN RECLINER THROUGHOUT SHIFT. PT MET WITH CARE MANAGEMENT TEAM TO HAVE HOME HEALTH AND A BEDSIDE CAMMODE BEFORE BEING DISCHARGED HOME. PT SIGNED A DOCUMENT TO ALLOW PHOTOS OF HER WOUND ON HER LEFT FRONT LE. PT RECEVIDED NEBULIZER TREATMENTS FOR WHEEZING AND COUGHING.PT RESTING IN BED WITH CALL WITHIN REACH.
--- NOTE | 2021-10-18 05:35 | NUR ---
SHIFT SUMMARY: PT IS ALERT AND ORIENTED WITH OCCASIONAL, MINOR CONFUSION. PT IS A STANDBY ASSIST TO THE BATHROOM WITH FWW. PT CALLS APPROPRIATELY. PT IS PLEASANT AND COOPERATIVE WITH CARE. AWAITING INSURANCE APPROVAL, MAY DC HOME WITH SON. NO ACUTE CHANGES OR COMPLICATIONS OVERNIGHT. BED IN LOW POSITION, CALL LIGHT WITHIN REACH. WILL CONTINUE TO MONITOR.
[2021-10-18 05:42] LABS: International Normalized Ratio 2.94; Prothrombin Time Results 28.8 Sec (9.7-11.5)
--- NOTE | 2021-10-18 11:51 | NUR ---
PHONE WITH SON: PT SON CALLED ADDRESSING THAT HE DIDN'T SEE PT PROGRESS WITH AMBULATION. SON NOT CLEAR ON DISCHARGE HOME. SON STATED HE NEEDS A RAMP FOR STAIRS AT HOME. SON STATED HE THOUGHT PT WAS BEING DISCHARGED TO THE [facility]. DR. RODRIGUES NOTIFED OF PT SONS CONCERNS AND PT WILL BE HELD IN HOSPITAL TILL CARE MANAGEMENT TEAM IS CONTACTED ON Tuesday09/18/21 FOR CARLIFICATION OF PLAN OF CARE.
--- NOTE | 2021-10-18 19:29 | NUR ---
SHIFT SUMMARY: PT A&O, HAPPY. PT AMBULATED TO THE BATHROOM THROUGHOUT SHIFT. PT SAT/SLEPT IN THE RECLINER THROUGHOUT SHIFT. PT SON CALLED DISCUSSING CONFUSION ON DISCHARGE ORDERS. DR. FARRELL NOTIFED ON THE SON NOT READY FOR MOM TO DISCHARGE HOME. CARE MANAGEMENT WILL BE CONTACTED ON CARE PLAN AND DOSCHARGE ARRANGEMENTS. PT STATED HER TONGUE HURT AND BURNED. DR. FARRELL ORDERED NYSTATIN SWISH AND SWALLOW 5ML ORDERED. PT SITTING IN RECLINER WITH CALL LIGHT WITHIN REACH.
--- NOTE | 2021-10-19 01:23 | NUR ---
SHIFT SUMMARY PLEASANT 76-YEAR-OLD FEMALE, A&O X4. CHANGED TO FULL CODE PER HER REQUEST. PERIPHERAL IV RIGHT FOREARM. ROOM AIR. STANDBY ASSIST WITH FWW. MEDS WHOLE WITH APPLESAUCE. FOAM DRESSING C/D/I TO RIGHT MONIQUE. CONTINENT, UP TO BEDSIDE COMMODE OR BATHROOM WITH ASSIST. ADA DIET, CBG'S AC/HS. POSSIBLE DISCHARGE TOMORROW. CONTINUE TO MONITOR.
[2021-10-19 04:58] LABS: International Normalized Ratio 2.63; Prothrombin Time Results 25.9 Sec (9.7-11.5)
--- NOTE | 2021-10-19 07:10 | NUR ---
This manual writer assumed care of patient at 0215. Patient is resting quietly , respirations even and unlabored. Patient up to BR with FWW, SBA assist, pt needs assist out of bed. Pt back up in chair. Call light in reach. Will continue to monitor.
--- NOTE | 2021-10-19 07:51 | NUR ---
PT HAD GLUCOSE LEVEL OF 34. PT AWAKE AND ALERT BUT SLOW TO RESPOND TO QUESTIONS. GAVE 4 OZ OF APPLEJUICE, 4 OZ OF ORANGE JUICE AND A CHOCOLATE ENSURE.
--- NOTE | 2021-10-19 19:38 | NUR ---
SHIFT SUMMARY: PT A/O X 3 STANDBY ASSIST TO BSC. PT IS PLEASANT AND COOPERATIVE WITH CARE. PT HAD CRITICAL BS THIS AM AT 34, 41 THEN AFTER JUICE, ENSURE AND BREAKFAST WAS STABLE. PT GLARGINE HELD THIS AM PER DR. FARRELL VERBAL ORDER TO HOLD THIS AM DOSE. PM GLARGINE DISCONTINUED. PT HAD PT SESSION AND WAS REPORTED SHE WAS UNABLE TO COMPLETE YEISON CARE. THIS EVENING PT REPORTED SHE WAS UNABLE TO COMPLETE YEISON CARE AFTER URINATING DUE TO COLLECTION HAT IN THE WAY SO IT WAS REMOVED AND SHE WAS ABLE TO COMPLETE YEISON CARE APPROPRIATELY INDEPENDENTLY. PT SON WAS UNABLE TO BE CONTACTED TODAY CELL PHONE DID NOT TAKE MESSAGES. SON DID NOT VISIT DURING THIS SHIFT. PT BEGAN CRYING DURING DISCUSSION OF DISCHARGING HOME AND SHE REPORTED "IT MAKES ME SICK TO GO HOME BECAUSE MY SON CUSSES WHEN HE HAS TO HELP ME AND I CAN'T STAND IT." PT CLARIFIED "HE DOESN'T CUSS TOWARDS ME, JUST WHEN HE IS FRUSTRATED AND I HATE IT WHEN HE TAKES THE LORDS NAME IN VAIN." PT REPORTED SHE STILL WANTS TO GO HOME. ADVISED IF SHE DOES NOT FEEL SAFE TO GO HOME TO PLEASE LET STAFF KNOW. PT THELMA.
--- NOTE | 2021-10-20 05:15 | NUR ---
SHIFT SUMMARY PT AOX4, PLEASANT AND COOPERATIVE WITH CARE. PT'S SON WAS HERE DEBBIE, HELPED PT COMPLETE EXERCISES IN HER ROOM AND BROUGHT HOME HER PERSONAL BSC. PT UP TO THE BATHROOM WITH FWW AND 1 PERSON SBA. PT DID NOT RECIEVE ANY INSULIN THIS SHIFT DUE TO GLARGINE BEING DC DUE TO YESTERDAY'S HYPOGLYCEMIA EPISODE. PT'S GLUCOSE IN THE HIGH 200'S THIS SHIFT. PT PREFERS MEDS WHOLE WITH APPLESAUCE. MEPILEX ON L MONIQUE C/D/I. PT HAD OCCASIONAL HACKING, CONGESTIVE COUGH.
[2021-10-20 05:30] LABS: International Normalized Ratio 2.09; Prothrombin Time Results 20.9 Sec (9.7-11.5)
--- NOTE | 2021-10-20 17:59 | NUR ---
PATIENT IS ALERT AND ORIENTED AND COOPERATIVE WITH CARE. SHE HAS SPENT ALL OF THIS SHIFT UP IN THE RECLINER. SHE IS A 1PA TO THE BATHROOM. A MAN FROM THE ADULT PROTECTIVE SERVICE WAS HERE TO SPEAK WITH THE PATIENT. HIS PLAN IS TO ENSURE THE PATIENT GETS A RAMP INSTALLED AT HER HOME, ASSIST HER IN GETTING A LIFT CHAIR AND ASSIST IN FINDING HER SOME SEMICOND[employer]CTOR PROCESSING GROUP LEADER CAREGIVERS. NO C/O SOB. NO C/O PAIN. WILL CONTINUE TO MONITOR
--- NOTE | 2021-10-20 23:26 | NUR ---
SHIFT SUMMARY PT C/O SORE LEFT BUTTOCKS. MOVED HER FROM THE RECLINER WHERE SHE HAS BEEN FOR AT LEAST TWO DAYS INTO BED AND POSITIONED HER OFF THAT SIDE. ASSESSED SKIN, NO BREAKDOWN WAS NOTED. PT CONTINUES TO AMBULATE WELL TO THE BATHROOM WITH 1SBA AND FWW. PT PLEASANT AND COOPERATIVE WITH CARE, VSS, NO ACUTE EVENTS, WILL CTM.
[2021-10-21 07:19] LABS: International Normalized Ratio 2.08; Prothrombin Time Results 20.8 Sec (9.7-11.5)
--- NOTE | 2021-10-21 19:35 | NUR ---
SHIFT SUMMARY PLEASANT 76-YEAR-OLD, A&O X4, FULL CODE. PTN 1-PERSON ASSIST, USE OF FWW TO BATHROOM. CONTINENT. PTN PREFERS SOME APPLESAUCE TO HELP HER SWALLOW HER PILLS. PTN DOES HAVE SOME BRUISING TO VARIOUS PLACES ON ARMS, AND L MONIQUE WITH DRESSING C/D/I. ADA DIET WITH CBGS AC/HS. PTN LEGALLY BLIND. SON IS PREPARING A RAMP AT HOME AND OBTAINING LIFT CHAIR. LIKELY D/C PLANNED FOR TOMORROW 10/22. CONTINUE TO MONITOR.
--- NOTE | 2021-10-22 04:23 | NUR ---
SHIFT SUMMARY ADMITTED FOR COPD EXACERBATION. FULL CODE. FOUND TO HAVE UTI AND SEPSIS- RESOLVED. PLAN IS FOR DC HOME W/SON & HH. FINISHING PREDNISONE TODAY. ADA DIET. ACHS CHEMSTICKS, HIGH SS. 1 ASSIST W/FWW - BRP. A&O X4, FORGETFUL. ON ROOM AIR. LEGALLY BLIND. WARFARIN IS MANAGED BY PHARMACY. HX OF FREQUENT FALLS. PRN RESPIRATORY TX'S. PHYSICAL & OCCUPATIONAL THERAPIES ARE ASSISTING WITH THIS PT.
[2021-10-22 05:02] LABS: International Normalized Ratio 2.07; Prothrombin Time Results 20.7 Sec (9.7-11.5)
--- NOTE | 2021-10-22 05:16 | NUR ---
SHIFT SUMMARY PT AOX4, PLEASANT AND COOPERATIVE WITH CARE. EARLY IN THE SHIFT WE MOVED THE PT FROM HER CHAIR TO THE BED TO GET PRESSURE OFF A SORE SPOT ON HER L BUTTOCKS. AFTER APPROX 2 HOURS SHE CALLED OUT IN PAIN SAYING HER L LOWER FLANK HURT, 9/10 PAIN BECAUSE SHE IS NOT USED TO LYING IN BED. WE MOVED HER BACK TO THE RECLINER AND SHE FELT SOME IMMEDIATE RELIEF. LATER SHE WOKE UP AND WAS TOO WEAK TO STAND HERSELF UP WITH HER WALKER LIKE USUAL, AND SHE REQUIRED A 2 PERSON ASSIST TO GET HER STANDING ON HER FEET. PT MAY D/C HOME TODAY WITH HER SON, APS IS HELPING FIND HER A WHEELCHAIR AND A LIFT CHAIR.
[2021-10-22] MEDS ORDERED: ACET500 PO (11:30)
[2021-10-22] MEDS ORDERED: GUAI600T33 PO (11:37)
[2021-10-22] MEDS ORDERED: NYSTATIN100000 U10 PO (11:39)
[2021-10-22] MEDS ORDERED: Coumadin2 MG PO (12:00)
--- NOTE | 2021-10-22 19:42 | NUR ---
DISCHARGE SUMMARY 76-YEAR-OLD FEMALE, DC'D HOME TODAY WITH HH FOLLOW, TO INCLUDE NURSING, PT, AND OT. SON CAME TO PICK HER UP, AND SHE WAS TAKEN BY WC TO EXIT BY BUSTER LLANES. ALL DC PAPERWORK WAS PRINTED AND GONE OVER, AND PTN'S QUESTIONS WERE ANSWERED. PTN AGREED TO FOLLOW WITH PRIMARY CARE NEXT WEEK, AND TO FOLLOW WITH LAB FOR INR CHECKS DIRECTED. RX LIST FAXED TO PHARMACY FOR PTN PICKUP. PTN AND SON VOICED UNDERSTANDING.
== END 2021-10-22 17:20 | disposition home health service (06) | DRG 191 ==
LOC: ER 07:06 → MEDS 11:00
PROVIDERS: Internal Medicine; Student in an Organized Health Care Education/Training Program; ADMIT Internal Medicine
DX: J44.1 Chronic obstructive pulmonary disease with (acute) exacerbation (principal); D68.59 Other primary thrombophilia; Z68.44 Body mass index [BMI] 60.0-69.9, adult; R65.10 Systemic inflammatory response syndrome (SIRS) of non-infectious origin without acute organ dysfunction; N18.30 Chronic kidney disease, stage 3 unspecified; Z66 Do not resuscitate; Z74.09 Other reduced mobility; E11.22 Type 2 diabetes mellitus with diabetic chronic kidney disease; H54.8 Legal blindness, as defined in USA; Z20.822 Contact with and (suspected) exposure to COVID-19; I12.9 Hypertensive chronic kidney disease with stage 1 through stage 4 chronic kidney disease, or unspecified chronic kidney disease; K21.9 Gastro-esophageal reflux disease without esophagitis; M19.90 Unspecified osteoarthritis, unspecified site; I48.91 Unspecified atrial fibrillation; E66.01 Morbid (severe) obesity due to excess calories; F32.A Depression, unspecified; D63.1 Anemia in chronic kidney disease; Z88.8 Allergy status to other drugs, medicaments and biological substances; Z79.01 Long term (current) use of anticoagulants; Z79.4 Long term (current) use of insulin; Z88.7 Allergy status to serum and vaccine; Z79.899 Other long term (current) drug therapy; Z79.51 Long term (current) use of inhaled steroids; Z79.82 Long term (current) use of aspirin; Z79.02 Long term (current) use of antithrombotics/antiplatelets; Z79.891 Long term (current) use of opiate analgesic; Z86.14 Personal history of Methicillin resistant Staphylococcus aureus infection; Z98.890 Other specified postprocedural states; Z90.49 Acquired absence of other specified parts of digestive tract; Z90.710 Acquired absence of both cervix and uterus; Z79.84 Long term (current) use of oral hypoglycemic drugs
CPT/HCPCS: 0241U; 36415; 51701; 71045; 80048; 80069; 80076; 81001; 82607; 82728; 82746; 82803; 82947; 83540; 83550; 83605; 83690; 83735; 83880; 84145; 85025; 85379; 85610; 87040; 87086; 93005; 93010; 93971; 94640; 94644; 94664; 94760; 96374-59; 97110; 97112; 97116; 97162; 97530; 99285-25; A9270; J0696; J1815; J1940; J7030; J7512

== ENCOUNTER 2021-10-25 12:31 | Emergency (ER) | payer OTHER ==
[~2021-10-25] VITALS: Ht 154.9 cm; Wt 127.0 kg
[~2021-10-25 12:31] MED LIST changes: +ACET500 PO; +ATENOLOL25 MG PO; +Coumadin2 MG PO; +GUAI600T33 PO; +NEURONTIN300 MG PO; +NYSTATIN100000 U10 PO; +[UNRECOGNIZED DRUG - CODE] PO
[2021-10-25 13:57] LABS: BASOPHILS ABSOLUTE AUTO 0.08 K/mm3 (0.00-0.23); BASOPHILS PERCENT AUTO 1 % (0-2); EOSINOPHILS ABSOLUTE AUTO 0.12 K/mm3 (0.00-0.68); EOSINOPHILS PERCENT AUTO 1 % (0-6); Hematocrit 26.2 % (33.0-51.0); Hemoglobin 8.2 g/dL (11.5-16.0); IMMATURE GRAN ABSOLUTE AUTO 0.06 K/mm3 (0.00-0.10); IMMATURE GRAN PERCENT AUTO 1 % (0-1); LYMPHOCYTES ABSOLUTE AUTO 1.21 K/mm3 (0.84-5.20); LYMPHOCYTES PERCENT AUTO 12 % (21-46); MONOCYTES ABSOLUTE AUTO 0.93 K/mm3 (0.16-1.47); MONOCYTES PERCENT AUTO 9 % (4-13); Mean Corpuscular HGB 24.8 pg (26.0-34.0); Mean Corpuscular HGB Conc 31.3 g/dL (31.5-36.5); Mean Corpuscular Volume 79 fL (80-100); Mean Platelet Volume 10.2 fL (9.1-12.4); NEUTROPHILS ABSOLUTE AUTO 7.62 K/mm3 (1.96-9.15); NEUTROPHILS PERCENT AUTO 76 % (41-73); Platelet Count 287 K/mm3 (150-400); RDW Coefficient Variation 20.9 % (11.7-14.2); RDW Standard Deviation 59.1 fL (35.1-46.3); White Blood Cell Count 10.02 K/mm3 (4.00-11.30)
[2021-10-25 14:00] LABS: Bun/Creatinine Ratio 48.3 (12.0-20.0); Calcium, Blood 7.9 mg/dL (8.5-10.1); Creatinine, Blood 1.16 mg/dL (0.40-1.00); Potassium, Blood 4.2 mmol/L (3.5-5.5)
== END 2021-10-25 17:56 | disposition home or self-care (01) ==
LOC: ER 12:31
PROVIDERS: Emergency Medicine
DX: R53.1 Weakness (principal); D64.9 Anemia, unspecified; I12.9 Hypertensive chronic kidney disease with stage 1 through stage 4 chronic kidney disease, or unspecified chronic kidney disease; E11.22 Type 2 diabetes mellitus with diabetic chronic kidney disease; N18.30 Chronic kidney disease, stage 3 unspecified; J44.9 Chronic obstructive pulmonary disease, unspecified; Z79.899 Other long term (current) drug therapy; Z79.82 Long term (current) use of aspirin; Z79.4 Long term (current) use of insulin; Z88.6 Allergy status to analgesic agent; Z88.7 Allergy status to serum and vaccine; Z79.01 Long term (current) use of anticoagulants
CPT/HCPCS: 80048; 83880; 85025

== ENCOUNTER → 2022-01-05 | Outpatient (CLI) | payer OTHER ==
[~2022-01-05] MED LIST changes: +ATOR40TA PO; +LACT10SY PO; +SPIR25 PO; +VITAMIN D5000 UNIT PO; +WARF1 PO
[2022-01-05 17:15] LABS: Source, Urine Straight Cath
[2022-01-05 18:03] LABS: Appearance, Urine Cloudy (Clear); Bilirubin, Urine Neg (Neg); Blood, Urine 2+ (Neg); Color, Urine Yellow (P-Yellow); Glucose Qualitative, Urine Neg (Neg); Ketones, Urine Neg (Neg); Leukocyte Esterase, Urine 2+ (Neg); Nitrite, Urine Neg (Neg); Protein, Urine 2+ (Neg); Specific Gravity, Urine 1.015 (1.003-1.022); Urobilinogen, Urine NORM (Normal)
[2022-01-05 18:18] LABS: Bacteria Many /hpf; Squamous Epithelial Cells Few /hpf (Few); White Blood Cells, Urine TNTC /hpf (0-5)
== END | disposition home or self-care (01) ==
LOC: EDSTATUS 08:39 → LAB RH 17:12
PROVIDERS: Internal Medicine
DX: I12.9 Hypertensive chronic kidney disease with stage 1 through stage 4 chronic kidney disease, or unspecified chronic kidney disease (principal); N18.32 Chronic kidney disease, stage 3b; E78.5 Hyperlipidemia, unspecified
CPT/HCPCS: 81001; 87086

== ENCOUNTER → 2022-01-17 | Outpatient (CLI) | payer OTHER ==
[2022-01-17 06:21] LABS: Source, Urine Foley catheter
[2022-01-17 06:28] LABS: Appearance, Urine Cloudy (Clear); Bilirubin, Urine Neg (Neg); Blood, Urine 3+ (Neg); Color, Urine Yellow (P-Yellow); Glucose Qualitative, Urine Neg (Neg); Ketones, Urine Neg (Neg); Leukocyte Esterase, Urine 3+ (Neg); Nitrite, Urine Neg (Neg); Protein, Urine 2+ (Neg); Urobilinogen, Urine NORM (Normal)
[2022-01-17 06:44] LABS: White Blood Cells, Urine 50-100 /hpf (0-5)
[2022-01-17 06:46] LABS: Bacteria Mod /hpf; Squamous Epithelial Cells Rare /hpf (Few)
[2022-01-17 06:47] LABS: Mucus Light (0-Heavy)
== END | disposition home or self-care (01) ==
LOC: LAB RH 04:00 → EDSTATUS 09:45
PROVIDERS: Internal Medicine
DX: N39.0 Urinary tract infection, site not specified (principal)
CPT/HCPCS: 81001; 87086

== ENCOUNTER → 2022-01-30 | Outpatient (CLI) | payer OTHER ==
[2022-01-30 22:13] LABS: Bilirubin, Urine Neg (Neg); Blood, Urine 5+ (Neg); Glucose Qualitative, Urine Neg (Neg); Ketones, Urine Neg (Neg); Leukocyte Esterase, Urine 3+ (Neg); Nitrite, Urine Neg (Neg); Protein, Urine 2+ (Neg); Specific Gravity, Urine 1.015 (1.003-1.022); Urobilinogen, Urine NORM (Normal)
[2022-01-30 22:32] LABS: Appearance, Urine Hazy (Clear); Color, Urine Yellow (P-Yellow)
[2022-01-30 22:33] LABS: Red Blood Cells, Urine TNTC /hpf (0-2); White Blood Cells, Urine 25-50 /hpf (0-5)
[2022-01-30 22:34] LABS: Bacteria Few /hpf; Squamous Epithelial Cells Not Seen /hpf (Few)
== END | disposition home or self-care (01) ==
LOC: EDSTATUS 09:57 → LAB RH 20:45
PROVIDERS: Internal Medicine
DX: N39.0 Urinary tract infection, site not specified (principal)
CPT/HCPCS: 81001; 87086

== ENCOUNTER → 2022-01-31 | Outpatient (CLI) | payer OTHER ==
[2022-01-31 11:02] LABS: Hematocrit 27.6 % (33.0-51.0); Hemoglobin 8.3 g/dL (11.5-16.0); Mean Corpuscular HGB 23.9 pg (26.0-34.0); Mean Corpuscular HGB Conc 30.1 g/dL (31.5-36.5); Mean Corpuscular Volume 80 fL (80-100); Mean Platelet Volume 11.4 fL (9.1-12.4); Platelet Count 217 K/mm3 (150-400); RDW Coefficient Variation 17.7 % (11.7-14.2); RDW Standard Deviation 50.9 fL (35.1-46.3); Red Blood Cell Count 3.47 M/mm3 (3.80-5.20); White Blood Cell Count 7.32 K/mm3 (4.00-11.30)
[2022-01-31 11:15] LABS: Bun/Creatinine Ratio 25.2 (12.0-20.0); Calcium, Blood 8.5 mg/dL (8.5-10.1); Creatinine, Blood 1.63 mg/dL (0.40-1.00); Potassium, Blood 4.3 mmol/L (3.5-5.5)
== END | disposition home or self-care (01) ==
LOC: EDSTATUS 09:58 → LAB RH 10:00
PROVIDERS: Internal Medicine
DX: I12.9 Hypertensive chronic kidney disease with stage 1 through stage 4 chronic kidney disease, or unspecified chronic kidney disease (principal); N18.9 Chronic kidney disease, unspecified; E66.01 Morbid (severe) obesity due to excess calories
CPT/HCPCS: 80048; 82140; 85027

== ENCOUNTER 2022-02-01 12:16 | Inpatient (IN) | payer OTHER ==
[~2022-02-01] VITALS: Ht 170.2 cm; Wt 132.6 kg
[~2022-02-01 12:16] MED LIST changes: -ATOR40TA PO; -LACT10SY PO; -SPIR25 PO; -VITAMIN D5000 UNIT PO; -WARF1 PO
[2022-02-01 13:18] LABS: BASOPHILS ABSOLUTE AUTO 0.06 K/mm3 (0.00-0.23); BASOPHILS PERCENT AUTO 1 % (0-2); EOSINOPHILS ABSOLUTE AUTO 0.06 K/mm3 (0.00-0.68); EOSINOPHILS PERCENT AUTO 1 % (0-6); Hematocrit 28.5 % (33.0-51.0); Hemoglobin 8.7 g/dL (11.5-16.0); IMMATURE GRAN ABSOLUTE AUTO 0.03 K/mm3 (0.00-0.10); IMMATURE GRAN PERCENT AUTO 0 % (0-1); LYMPHOCYTES ABSOLUTE AUTO 1.14 K/mm3 (0.84-5.20); LYMPHOCYTES PERCENT AUTO 13 % (21-46); MONOCYTES ABSOLUTE AUTO 1.18 K/mm3 (0.16-1.47); MONOCYTES PERCENT AUTO 14 % (4-13); Mean Corpuscular HGB 24.3 pg (26.0-34.0); Mean Corpuscular HGB Conc 30.5 g/dL (31.5-36.5); Mean Corpuscular Volume 80 fL (80-100); NEUTROPHILS ABSOLUTE AUTO 6.13 K/mm3 (1.96-9.15); NEUTROPHILS PERCENT AUTO 71 % (41-73); NRBC ABSOLUTE 0.03 K/mm3 (0.00-0.02); NRBC Auto 0.3 /100 WBC (0.0-0.2); Platelet Count 219 K/mm3 (150-400); RDW Coefficient Variation 17.7 % (11.7-14.2); Red Blood Cell Count 3.58 M/mm3 (3.80-5.20)
[2022-02-01 13:35] LABS: Albumin/Globulin Ratio 0.6 (0.8-1.8); Bilirubin, Total 1.1 mg/dL (0.1-1.0); Bun/Creatinine Ratio 26.7 (12.0-20.0); Calcium, Blood 9.1 mg/dL (8.5-10.1); Creatinine, Blood 1.72 mg/dL (0.40-1.00); Globulin, Blood 4.8 g/dL (2.2-4.0); Potassium, Blood 4.8 mmol/L (3.5-5.5); Total Protein, Blood 7.8 g/dL (6.4-8.2)
[2022-02-01 15:08] LABS: Source, Urine Straight Cath
[2022-02-01 15:16] LABS: Appearance, Urine Cloudy (Clear); Bilirubin, Urine Neg (Neg); Blood, Urine 5+ (Neg); Color, Urine Yellow (P-Yellow); Glucose Qualitative, Urine Neg (Neg); Ketones, Urine Neg (Neg); Leukocyte Esterase, Urine 3+ (Neg); Nitrite, Urine Neg (Neg); Protein, Urine 3+ (Neg); Urobilinogen, Urine NORM (Normal)
[2022-02-01 15:38] LABS: Red Blood Cells, Urine TNTC /hpf (0-2); White Blood Cells, Urine TNTC /hpf (0-5)
[2022-02-01 15:39] LABS: Bacteria Mod /hpf; Renal Epithelial Few /hpf (0-Rare); Squamous Epithelial Cells Few /hpf (Few); Transitional Epithelial Cells Few /hpf (0-Rare)
[2022-02-01 15:54] LABS: Influenza A, PCR NEGATIVE (NEGATIVE); Influenza B, PCR NEGATIVE (NEGATIVE); Resp Syncytial Virus, PCR NEGATIVE (NEGATIVE); SARS-Cov-2 (COVID-19) PCR, MMC NEGATIVE (NEGATIVE)
--- NOTE | 2022-02-01 21:57 | NUR ---
ADMIT NOTE HANDOFF RECEIVED FROM B[employer]S ENGINEERING MANAGER ARACELI. PT ARRIVED TO FLOOR VIA GUREDIN. KNOWLES IN PLACE. PT IS CONFUSED, PULLING AT LINES/TUBES. PT IS SWINGING LEGS OVER THE SIDE OF THE BED, EVEN WITH FAMILY IN ROOM. IV FLUIDS STARTED ORDERED. UNABLE TO REORIENT PT AT THIS TIME
--- NOTE | 2022-02-01 23:26 | NUR ---
CALLED HOSPITALIST INFORMED HOSPITALIST THAT PT IS AGITATED AND CONFUSED, PULLING AT LINES AND TUBES. ATTEMPTING TO EXIT BED. UNABLE TO REDIRECT. NEW ORDERS IN EMAR
[2022-02-01] MEDS ORDERED: WARF1 PO (23:44)
[2022-02-01] MEDS ORDERED: LACT10SY PO ×2 (23:51→23:53)
[2022-02-01 23:53] LABS: Adenovirus Not Detected (NOT DETECT); Coronavirus 229E Not Detected (NOT DETECT); Coronavirus HKU1 Not Detected (NOT DETECT); Coronavirus NL63 Not Detected (NOT DETECT); Coronavirus OC43 Not Detected (NOT DETECT)
[2022-02-01 23:54] LABS: Bordetella pertussis Not Detected (NOT DETECT); Chlamydophila pneumoniae Not Detected (NOT DETECT); Human Metapneumovirus Not Detected (NOT DETECT); Human Rhinovirus/Enterovirus Not Detected (NOT DETECT); Influenza A/2009-H1 Not Detected (NOT DETECT); Influenza A/H1 Not Detected (NOT DETECT); Influenza A/H3 Not Detected (NOT DETECT); Influenza B Not Detected (NOT DETECT); Mycoplasma pneumoniae Not Detected (NOT DETECT); Parainfluenza Virus 1 Not Detected (NOT DETECT); Parainfluenza Virus 2 Not Detected (NOT DETECT); Parainfluenza Virus 3 Not Detected (NOT DETECT); Parainfluenza Virus 4 Not Detected (NOT DETECT); Respiratory Syncytial Virus Not Detected (NOT DETECT); SARS-Cov-2 (COVID-19), BioFire Not Detected (NOT DETECT)
[2022-02-01] MEDS ORDERED: VITAMIN D5000 UNIT PO (23:58)
[2022-02-02] MEDS ORDERED: SPIR25 PO (00:01)
[2022-02-02] MEDS ORDERED: ATOR40TA PO (00:02)
--- NOTE | 2022-02-02 01:55 | NUR ---
HOSPITALIST CALLED BLOOD GLUCOSE WAS 66. ORDER RECEIVED FOR D5 1/2 NS, AND Q2 CBG'S (X2). PT IS AGITATED AND IMPULSIVE. WILL CALL HOSPITALIST WITH UPDATE
--- NOTE | 2022-02-02 04:16 | NUR ---
SHIFT SUMMARY ADMITTED FOR ENCEPHALOPATHY/UTI/PNEUMONIA. FULL CODE. PT IS AMS/CONFUSED. PULLING AT LINES/TUBES, ATTEMPTING TO EXIT BED. ALHAJI VEST IN PLACE. DUE TO LOW GLUCOSE LEVEL, D5 1/2 NS IS INFUSING ORDERED. KNOWLES IN PLACE. IM ANXIETY MED GIVEN WITH NO EFFECT. FROM [facility]. IN CONTACT PRECAUTIONS FOR VRE IN URINE. ON WARFARIN. AMBULATION STATUS UNKNOWN, HER SON WAS UNABLE TO CLARIFY. CURRENTLY NPO.
[2022-02-02 05:34] LABS: BASOPHILS ABSOLUTE AUTO 0.07 K/mm3 (0.00-0.23); BASOPHILS PERCENT AUTO 1 % (0-2); EOSINOPHILS ABSOLUTE AUTO 0.15 K/mm3 (0.00-0.68); EOSINOPHILS PERCENT AUTO 2 % (0-6); Hematocrit 28.9 % (33.0-51.0); Hemoglobin 8.9 g/dL (11.5-16.0); IMMATURE GRAN ABSOLUTE AUTO 0.04 K/mm3 (0.00-0.10); IMMATURE GRAN PERCENT AUTO 0 % (0-1); LYMPHOCYTES ABSOLUTE AUTO 1.24 K/mm3 (0.84-5.20); LYMPHOCYTES PERCENT AUTO 13 % (21-46); MONOCYTES PERCENT AUTO 14 % (4-13); Mean Corpuscular HGB 24.3 pg (26.0-34.0); Mean Corpuscular HGB Conc 30.8 g/dL (31.5-36.5); Mean Corpuscular Volume 79 fL (80-100); Mean Platelet Volume 11.4 fL (9.1-12.4); NEUTROPHILS ABSOLUTE AUTO 6.72 K/mm3 (1.96-9.15); NEUTROPHILS PERCENT AUTO 71 % (41-73); NRBC ABSOLUTE 0.03 K/mm3 (0.00-0.02); NRBC Auto 0.3 /100 WBC (0.0-0.2); Platelet Count 229 K/mm3 (150-400); RDW Coefficient Variation 17.8 % (11.7-14.2); RDW Standard Deviation 50.8 fL (35.1-46.3); Red Blood Cell Count 3.67 M/mm3 (3.80-5.20); White Blood Cell Count 9.52 K/mm3 (4.00-11.30)
[2022-02-02 06:06] LABS: Prothrombin Time Results 86.3 Sec (9.7-11.5)
[2022-02-02 06:22] LABS: Albumin, Blood 2.9 g/dL (3.4-5.0); Albumin/Globulin Ratio 0.6 (0.8-1.8); Bilirubin, Total 1.2 mg/dL (0.1-1.0); Calcium, Blood 8.8 mg/dL (8.5-10.1); Creatinine, Blood 1.84 mg/dL (0.40-1.00); Globulin, Blood 4.6 g/dL (2.2-4.0); Potassium, Blood 4.3 mmol/L (3.5-5.5); Total Protein, Blood 7.5 g/dL (6.4-8.2)
[2022-02-02 06:36] LABS: International Normalized Ratio 9.52
--- NOTE | 2022-02-02 06:48 | NUR ---
CALLED HOSPITALIST NOTIFIED PHARMACY AND HOSPITALIST OF INR LAB. NO ACTIVE BLEEDS NOTED. HGB STABLE. HOSPITALIST HOLDING LOVENOX & ASPIRIN. PHARMACY HOLDING WARFARIN. WILL CONTINUE TO MONITOR. CHARGE INFORMED
--- NOTE | 2022-02-02 08:15 | NUR ---
BLOOD SUGAR PT'S BG THIS AM WAS 49. PLACED CALL TO MD TO NOTIFY. ORDERS RECEIVED FOR INFUSION OF D10. D10 HUNG AND INFUSING.
--- NOTE | 2022-02-02 18:18 | NUR ---
NURSING PCU DAYSHIFT SUMMARY: Assumed care of pt at approx 1600. Pt arrived from medical floor via bed accompanied by RN and INVENTORY CLERK. Xfer to unit bed using slider sheet, skin assessment completed at time of xfer. Pt confused, speech slurred, does not follow commands, does not answer questions. Skin is fairly dry to ext's with scattered scabs/bruising, redness and excoriation to folds. Tele placed, afib w/HR 80's, SBP 99, minimal dependent edema of upper body/back. L/S fairly cta t/o w/dim bases, O2 sat upper 90's on RA, snores while asleep, respirations unlabored, no noted cough. Abd obese, BT+, FC w/stat lock present, draining dark yellow urine. 22g PIV to L thumb, PG placed to LUE, D5 1/2NS infusing at 100cc/hr as per d/o w/abx as scheduled. No s/s of acute distress at time of arrival. CBG monitored Q2 hr and is currently 97 after glucagon x1. [place] vest remains in place for safety purposes as pt is trying to get OOB and remains undirectable. Call light in reach though pt has not demonstrated ability to use, frequent rounding required. Cont to monitor until rpt is given to NOC RN.
[2022-02-03 03:56] LABS: BASOPHILS ABSOLUTE AUTO 0.05 K/mm3 (0.00-0.23); BASOPHILS PERCENT AUTO 1 % (0-2); EOSINOPHILS ABSOLUTE AUTO 0.13 K/mm3 (0.00-0.68); EOSINOPHILS PERCENT AUTO 1 % (0-6); Hematocrit 27.1 % (33.0-51.0); Hemoglobin 8.4 g/dL (11.5-16.0); IMMATURE GRAN ABSOLUTE AUTO 0.06 K/mm3 (0.00-0.10); IMMATURE GRAN PERCENT AUTO 1 % (0-1); LYMPHOCYTES ABSOLUTE AUTO 1.02 K/mm3 (0.84-5.20); LYMPHOCYTES PERCENT AUTO 11 % (21-46); MONOCYTES ABSOLUTE AUTO 0.92 K/mm3 (0.16-1.47); MONOCYTES PERCENT AUTO 10 % (4-13); Mean Corpuscular HGB 24.3 pg (26.0-34.0); Mean Corpuscular Volume 78 fL (80-100); Mean Platelet Volume 10.6 fL (9.1-12.4); NEUTROPHILS ABSOLUTE AUTO 6.95 K/mm3 (1.96-9.15); NEUTROPHILS PERCENT AUTO 76 % (41-73); NRBC ABSOLUTE 0.02 K/mm3 (0.00-0.02); NRBC Auto 0.2 /100 WBC (0.0-0.2); Platelet Count 200 K/mm3 (150-400); RDW Standard Deviation 49.7 fL (35.1-46.3); Red Blood Cell Count 3.46 M/mm3 (3.80-5.20); White Blood Cell Count 9.13 K/mm3 (4.00-11.30)
[2022-02-03 04:40] LABS: Bun/Creatinine Ratio 25.5 (12.0-20.0); Creatinine, Blood 1.84 mg/dL (0.40-1.00); Percent Saturation 8.7 % (15.0-50.0); Potassium, Blood 3.9 mmol/L (3.5-5.5)
[2022-02-03 04:41] LABS: Prothrombin Time Results >90.0 Sec (9.7-11.5)
[2022-02-03 04:43] LABS: International Normalized Ratio >10.00
--- NOTE | 2022-02-03 06:36 | NUR ---
SHIFT SUMMARY PT REMAINS ALTERED AND ONLY ORIENTED TO SELF. PT SPEECH IS GARBLED AND SHE FREQUENTLY SHOUTS OUT. NOT ABLE TO REDIRECT PT. PT CONTINUOUSLY PULLING AT ALL LINES T/O SHIFT, INCLUDING KNOWLES AND PULLING OUT IV IN LEFT HAND. ORDER FOR SOFT WRIST RESTRAINTS DUE TO THIS. PT HAS ALSO BEEN IN ALHAJI VEST T/O SHIFT. PT HAS EXCORIATIONS T/O BODY DUE TO PICKING, ALL IN VARIOUS HEALING STAGES. PT AFIB IN 80-90'S T/O SHIFT. SPO2 >92% ON RA, RESPIRATIONS EVEN AND UNLABORED. PT HAS DEPENDENT EDEMA IN BOTH FOREARMS AND RIGHT HAND. PT REPOSITIONED AND EXTREMITIES ARE ELEVATED ON PILLOWS. PT INR ELEVATED, THE RESIDENT DOCTOR WAS CONTACTED AND PLAN IS TO CONTINUE HOLDING PT WARFARIN. PT BLOOD SUGARS HAVE BEEN STABLE T/O SHIFT, SLOWLY INCREASING. PT HAD D10 INFUSING. DR SOTO WAS CONTACTED AND ORDER RECEIVED TO DC D10 DRIP, MONITOR PT BLOOD SUGAR Q1 X3 AND THEN Q6. ORDER ALSO TO CHANGE PT TO LOW SLIDING SCALE Q6 DUE TO PT NPO STATUS. WILL REPORT TO ONCOMING RN.
--- NOTE | 2022-02-03 10:36 | NUR ---
Dr. Tapia in to see the patient.
--- NOTE | 2022-02-03 10:37 | NUR ---
Pt has been opening eyes to voice. She occasionally has been yelling out incoherently, slurred speech, without discernable meaning at times. Mostly she is sleeping. No significant verbal interaction possible, and she has been following some simple directions, but is lethargic and closes her eyes and falls back to sleep quickly.
--- NOTE | 2022-02-03 13:19 | NUR ---
Pt continues to be confused, incoherently speaking when alone, and not really responding to conversation. Occasionally answers simple questions, but speech is difficult to understand and it does not appear that she definitely is understanding questions. Moving all extremities as able, especially arms, and scooting down in the bed. Repositioning every 1-2 hours as she moves around so much and needs correction in her position. Vital signs are stable. Right arm and hand are swollen, as before, and elevated on pillows to reduce edema. Small puncture/skin tear on the right forearm is weeping serosanginous fluid almost constanstly, small amounts. She does not appear to be in any discomfort/distress.
--- NOTE | 2022-02-03 13:46 | NUR ---
Dressing change to powerglide midline catheter done, aseptic technique was followed. Pt repositioned to the left side, HOB slightly elevated. She was uncooperative, not responding to commands, still confused.
--- NOTE | 2022-02-03 16:00 | NUR ---
LATE ENTRY/02-02-22 @ 1450 PT'S BG 54. IS ON D10 AT 75ML/HR. NEW PIV IN L THUMB IS POSITIONAL. PLACED A CALL TO MD TO NOTIFY & RECEIVED ORDERS TO TRANSFER PT TO PCU. 1530: REPORT CALLED TO FIRE ALARM OPERATOR. 1600: PT TRANSFERRED TO PCU VIA BED.
[2022-02-04 04:36] LABS: BASOPHILS ABSOLUTE AUTO 0.04 K/mm3 (0.00-0.23); BASOPHILS PERCENT AUTO 1 % (0-2); EOSINOPHILS ABSOLUTE AUTO 0.19 K/mm3 (0.00-0.68); EOSINOPHILS PERCENT AUTO 2 % (0-6); Hematocrit 27.1 % (33.0-51.0); Hemoglobin 8.6 g/dL (11.5-16.0); IMMATURE GRAN ABSOLUTE AUTO 0.03 K/mm3 (0.00-0.10); IMMATURE GRAN PERCENT AUTO 0 % (0-1); LYMPHOCYTES ABSOLUTE AUTO 0.97 K/mm3 (0.84-5.20); LYMPHOCYTES PERCENT AUTO 11 % (21-46); MONOCYTES ABSOLUTE AUTO 0.78 K/mm3 (0.16-1.47); MONOCYTES PERCENT AUTO 9 % (4-13); Mean Corpuscular HGB 24.6 pg (26.0-34.0); Mean Corpuscular HGB Conc 31.7 g/dL (31.5-36.5); Mean Corpuscular Volume 77 fL (80-100); Mean Platelet Volume 10.3 fL (9.1-12.4); NEUTROPHILS ABSOLUTE AUTO 6.58 K/mm3 (1.96-9.15); NEUTROPHILS PERCENT AUTO 77 % (41-73); NRBC ABSOLUTE 0.05 K/mm3 (0.00-0.02); NRBC Auto 0.6 /100 WBC (0.0-0.2); Platelet Count 194 K/mm3 (150-400); RDW Coefficient Variation 18.2 % (11.7-14.2); RDW Standard Deviation 49.2 fL (35.1-46.3); White Blood Cell Count 8.59 K/mm3 (4.00-11.30)
[2022-02-04 05:03] LABS: Albumin, Blood 2.9 g/dL (3.4-5.0); Albumin/Globulin Ratio 0.6 (0.8-1.8); Bilirubin, Total 1.8 mg/dL (0.1-1.0); Bun/Creatinine Ratio 26.4 (12.0-20.0); Calcium, Blood 8.9 mg/dL (8.5-10.1); Creatinine, Blood 1.74 mg/dL (0.40-1.00); Globulin, Blood 4.6 g/dL (2.2-4.0); Potassium, Blood 3.8 mmol/L (3.5-5.5); Total Protein, Blood 7.5 g/dL (6.4-8.2)
--- NOTE | 2022-02-04 05:26 | NUR ---
ASSOCIATE LOAN OFFICER SUMMARY PT IS ALERT TO SELF ONLY NOT FOLLOWING COMMANDS THIS SHIFT. PT'S MOVEMENTS HAVE BEEN LOCALIZING SHE RERSISTS ANY CARE BEING PROVIDED TO HER. RESTRAINTS DC'D AT THE START OF THE SHIFT THEY APPEARED TO BE MAKING THE PT MORE AGITATED SO LINES WERE CONCEALED AND PT DID FINE W NO RESTRAINTS. BP WNL AND STABLE. SPO2 >92% ON RM AIR. PT AFEBRILE. KNOWLES PATENT AND DRAINING DARK YELLOW URINE THIS SHIFT. D5W RUNNING AT 75ML/HR, CBG'S STABLE. WILL REPORT TO ONCOMING RN.
--- NOTE | 2022-02-04 07:38 | NUR ---
Pt opens eyes sometimes to speech. She is moving all extremities spontaneously, eyes closed, and appears to be making motions of picking things out of the air. Occasionally mumbles incoherently. Answered with slurred speech to some simple questions, but not all. Cai catheter draining clear yellow urine. D51/2 NS infusing at 75 cc/hour, second bag since ordered.
--- NOTE | 2022-02-04 12:58 | NUR ---
Results of CT scan up; notified Dr. Cho of this. New order received to saline lock IV at this time.
--- NOTE | 2022-02-04 15:47 | NUR ---
Dobhoff nasogastric tube inserted Pt was placed in the high folwer's position for placement of dobhoff. 60 cm measurement estimation for placement. NG tube was lubricated and placed to the 60 cm hamlet. Pt tolerated well; she was able to swallow to assist with the insertion. Abdominal xray completed at this time to verify the placement. Pt is attempting to pull out the dobhoff. She remains confused, unable to follow directions. Wrist restraints placed to avoid pt disloging the NGT. She is blowing her nose attempting to remove it.
--- NOTE | 2022-02-04 16:17 | NUR ---
Report received from abdominal xray to advance the dobhoff 6 cm. This was done, line was flushed with 10 cc NS and guide wire was removed. NGT is secured with adhesive securement device to the pt's nose. Restraints to wrists in place to prevent pt's attempts to remove the tube.
--- NOTE | 2022-02-04 21:16 | NUR ---
ASSUMPTION OF CARE THIS RN ASSUMED CARE OF PT AT 1900. PT LYING IN BED, LETHARGIC AND NOT RESPONDING TO QUESTIONS. PT NOT OPENING EYES TO HER NAME. PT SLIGHTLY OPENED EYES TO TACTILE STIMULUS BUT DOES LOCALIZE AND RESPOND TO PAIN STIMULUS. DOBHOFF TUBE IN PLACE AT [address] BY TAPE. TUBEFEEDING RUNNING AT 25 MLS/HR. ANTIBIOTICS INFUSING PER EMAR TO PG IN SARAH. SOFT RESTRAINTS IN PLACE DUE TO PT PULLING AT LINES AND CORDS. RESTRAINTS CHECKED. THIS RN AND DAY SHIFT RN ARE GIVING REPORTS, PT OCCASSIONALLY YELLING OUT; SPEECH IS INDISTINGUISHABLE AND GARBLED. VS; BP 112/52 (71), SR W/HR OF 78, RR 15, SPO2 96% ON RA, TEMP 96.4 TEMPORAL. PT MEDICAL STATUS W/NO TELEMETRY. NO SIGNS OF DISTRESS AT THIS TIME.
--- NOTE | 2022-02-05 03:46 | NUR ---
UPDATE/LATE ENTRY FROM 0245 PT TF INCREASED TO 35ML PER ORDERS. PT IS NOT ABLE TO ANSWER QUESTIONS BUT APPEARS TO BE TOLERATING FEEDINGS. NO ABDOMINAL DISCOMFORT NOTED, BS STILL HYPOACTIVE, AND NO PAIN/DISTENTION NOTED.
[2022-02-05 05:03] LABS: BASOPHILS ABSOLUTE AUTO 0.05 K/mm3 (0.00-0.23); BASOPHILS PERCENT AUTO 1 % (0-2); EOSINOPHILS ABSOLUTE AUTO 0.17 K/mm3 (0.00-0.68); EOSINOPHILS PERCENT AUTO 2 % (0-6); Hematocrit 27.5 % (33.0-51.0); Hemoglobin 8.5 g/dL (11.5-16.0); IMMATURE GRAN ABSOLUTE AUTO 0.06 K/mm3 (0.00-0.10); IMMATURE GRAN PERCENT AUTO 1 % (0-1); LYMPHOCYTES ABSOLUTE AUTO 0.89 K/mm3 (0.84-5.20); LYMPHOCYTES PERCENT AUTO 9 % (21-46); MONOCYTES ABSOLUTE AUTO 0.73 K/mm3 (0.16-1.47); MONOCYTES PERCENT AUTO 7 % (4-13); Mean Corpuscular HGB 24.2 pg (26.0-34.0); Mean Corpuscular HGB Conc 30.9 g/dL (31.5-36.5); Mean Corpuscular Volume 78 fL (80-100); Mean Platelet Volume 11.2 fL (9.1-12.4); NEUTROPHILS ABSOLUTE AUTO 8.48 K/mm3 (1.96-9.15); NEUTROPHILS PERCENT AUTO 82 % (41-73); NRBC ABSOLUTE 0.09 K/mm3 (0.00-0.02); NRBC Auto 0.9 /100 WBC (0.0-0.2); Platelet Count 205 K/mm3 (150-400); RDW Standard Deviation 48.7 fL (35.1-46.3); Red Blood Cell Count 3.51 M/mm3 (3.80-5.20); White Blood Cell Count 10.38 K/mm3 (4.00-11.30)
[2022-02-05 05:34] LABS: Albumin, Blood 3.3 g/dL (3.4-5.0); Albumin/Globulin Ratio 0.8 (0.8-1.8); Bilirubin, Total 2.4 mg/dL (0.1-1.0); Calcium, Blood 9.2 mg/dL (8.5-10.1); Creatinine, Blood 1.77 mg/dL (0.40-1.00); Globulin, Blood 4.3 g/dL (2.2-4.0); Magnesium, Blood 2.2 mg/dL (1.6-2.4); Phosphorus, Blood 2.9 mg/dL (2.5-4.9); Potassium, Blood 3.9 mmol/L (3.5-5.5); Total Protein, Blood 7.6 g/dL (6.4-8.2)
--- NOTE | 2022-02-05 06:37 | NUR ---
SHIFT SUMMARY NO ACUTE CHANGES FROM ASSUMPTION OF CARE NOTE. PT STILL NOT FOLLOWING COMMANDS OR ABLE TO ANSWER QUESTIONS. SPEECH CONTINUES TO BE GARBLED AND INCOMPREHENSIBLE. RESTRAINTS STILL IN PLACE, PT STILL ATTEMPTING TO PULL AT LINES/TUBES AND CONFUSED. TF INCREASED TO 35 MLS/HR; PT APPEARS TO BE TOLERATING FEEDINGS. SPO2 91 % - 96% ON RA. PT REPOSITIONED Q2 AND/OR NEEDED. KNOWLES CATHETER IN PLACE AND DRAINING TO GRAVITY; 700 ML OUTPUT THIS SHIFT. EDEMA BLE AND BUE STILL PRESENT, DOES NOT SEEM TO BE IMPROVING. FREQUENT ROUNDING COMPLETED D/T PT'S INABILITY TO USE CALL LIGHT. WILL UPDATE ONCOMING DAYSHIFT RN.
[2022-02-05 07:14] LABS: International Normalized Ratio 2.26; Prothrombin Time Results 22.5 Sec (9.7-11.5)
--- NOTE | 2022-02-05 07:19 | NUR ---
Pt is lethargic, mumbling incoherently and not responding to directions/simple commands. spo2 lower on room air than yesterday, now 90-91% on room air, RR, 16/min. Fine inspiratory crackles noted auscultated anteriorly, bilaterally. She does not appear to be in distress. Increased edema on both hands and arms now.
--- NOTE | 2022-02-05 09:28 | NUR ---
REPOSITIONED FOR 1 VIEW CHEST XRAY.
--- NOTE | 2022-02-05 11:51 | NUR ---
pt's livestock ranch hand Margaux was here for a visit.
--- NOTE | 2022-02-05 12:27 | NUR ---
Mentation remains unchanged at this time. Son at the bedside, talking with Palliative care RN Catarino. Noted pt's blood pressure is 81/52 (57 MAP) at this time. Urine output since lasix adiminstration this am is 250 cc.
--- NOTE | 2022-02-05 12:46 | NUR ---
Dr. Cho here to talk with son, Alberto at this time.
--- NOTE | 2022-02-05 13:05 | NUR ---
Spoke with Primary RN Marylu and discussed case. Son has arrived and is at bedside. Marylu will call Dr Cho for conversation with son. Pt resting in bed with her eyes closed. Pt appears comfortable with no S/S of distress at this time. Pt does not wake throughout visit with son Alberto who is at bedside. Offered emotional support as son is tearful. Allowed son Alberto to express frustration regarding care Pt received prior to hospital at facility. Engaged in therapeutic conversation regarding goals of care. Provided update and gentle education on disease process. Discussed the option for continuing current plan of care and considering comfort care and hospice. Continued therapeutic listening. Dr Cho in to review plan of care and Pt's condition and also discusses options. Son reports plan to make a couple of calls then will let careteam know of decision. Palliative Care will remain available.
--- NOTE | 2022-02-05 15:27 | NUR ---
Pt is alert at this time, no comprehensible speech, but she did open her mouth readily to request, and also smiled twice at staff. Her grandson is with her at the bedside at this time. Repositioned supine, hips floated on pillows.
--- NOTE | 2022-02-05 21:17 | NUR ---
REQUESTED TO ROOM BY PCT FOR DOBHOFF PULLED OUT. FOUND PT IN WRIST RESTRAINTS BUT WITH ENOUGH SLACK TO REACH WITH RIGHT HAND, DOBHOFF WAS COMPLETELY REMOVED AND RUNNING OUT ONTO PATIENT'S CHEST. PLACED THE PUMP ON HOLD, DISCARDED THE DOBHOFF, AND NOTIFIED THE PRIMARY RN ROSENDO. WILL EVALUATE ORDERS AND PLAN OF CARE PRIOR TO PROCEEDING WITH NEW DOBHOFF PLACEMENT.
--- NOTE | 2022-02-05 21:52 | NUR ---
ASSUMED PT CARE FORM LOBO RN ON HI. PT RESTING IN BED. BREATHING IS EVEN AND UNLABORED. O2 SATS 97% ON 2 LPM. DOES NOT APPEAR IN ANY DISTRESS. PT IS SOFT WRIST RESTRAINS TO REPREVENT PULLING AT LINES AND TUBES. PT ABLE TO REMOVED OWN DOBHOFF TUBE EVEN IN RESTRAINTS. SEE NOT BY TERESITA ALVAREZ CHARGE NURSE. PT'S SON MARIO CALLED AND INFROMED OF PT REMOVING TUBE, RECEIVED INSTRUCTIONS PER PT SON TO LEAVE DOBHOFF TUBE OUT IS HER WISHES IN POLST FORM.
[2022-02-06 05:17] LABS: International Normalized Ratio 3.09; Prothrombin Time Results 30.1 Sec (9.7-11.5)
--- NOTE | 2022-02-06 06:24 | NUR ---
SHIFT SUMMARY: PT HAS HAD NO ACUTE CHANGES DURING THIS SHIFT. CONTINUES TO BE INCOHARENT WITH SPEECH, UNABLE TO MAKE NEEDS KNOWN OR FOLLOW DIRECTIONS. CONSTANT FIDGETING IN BED, NEEDS FREQUENT REPOSITIONING FOR COMFORT. SUBLINGUAL ROXINAL GIVEN TO HELP WITH COMFORT WITH SLIGHT RESULTS. PT ABLE TO MAINTAIN O2 SATS > 92% ON 2 LPM WHEN AT REST, DESATURATES WITH MOVEMENT, AND FREQUENTLY REMOVES NC. O2 INCREASED TO 4 LPM WITH REPOSITIONINGS TO KEEP O2 UP. KNOWLES CATHETER IN PLACE DRAINING CLEAR, YELLOW URINE.
--- NOTE | 2022-02-06 16:32 | NUR ---
END OF SHIFT: NEURO: PATIENT IS STILL NOT ALERT AND ORIENTED, CALLS OUT MOST OF THE TIME, AGITATED AT TIMES. PATIENT IS NOW UNDER COMFORT CARE. REPOSITIONED WELL Q1-2 IF PATIENT ALLOWS. PATIENT MOVES INTO UNCOMFORTABLE POSITION AND SLIDES TO HER SIDE QUITE OFTEN. PUPILS ARE STILL SMALL AND IRREGULARLY SHAPED. RANDOM MOVEMENT OF UPPER EXTREMS AT TIMES. PATIENT AT THIS TIME IS SLEEPING WELL CURRENLTY. PAIN UNDER CONTROL WITH NEW EMAR MEDS. CARDIAC: AM BLOOD PRESSURE WAS SIGNIFICANTLY DECREASED CALL PLACED TO SON AND DIRECTION OF CARE CHANGED VERY SHORTLY AFTER. NO ANA SINCE DUE TO CC SWITCH AND PATIENT COMFORT. PULM: STILL ON 4 L VIA NC PER FAMILY REQUEST WILL DECREASE IF NOT SEEN BY THIS FACILITY PRACTICE SPECIALIST BY 1700. RR INCREASED ROXANOL HELPS WELL WITH AIRHUNGER. ADDITIONALLY ATIVAN PO HELPS WITH ANXIETY/AGITATION. GI/: KNOWLES STILL DRAINING TO GRAVITY WELL WITH NO CONCERNS CATH CARE PROVIDED ALONG WITH AM BED BATH. TONS OF EDUCATION PROVIDED TO FAMILY IN REGARDS TO END STAGE OF LIFE. PATIENT IS CURRENTLY COMFORTABLE NO CONCERNS FROM THIS RN AT THIS TIME. WILL CONTINUE TO MONITOR UNTIL SHIFT CHANGE.
--- NOTE | 2022-02-06 19:11 | NUR ---
UPDATE END OF SHIFT: SON IN THE ROOM AT APPROX 1830 NURSE ENTERED AND WAITED WITH PATIENT AND PATIENT SON, PATIENT BREATHING STARTED SLOWING AND TOD AT 1852 CONFIRMED BY COLOR SPRAYER AND Susannah DAVILA RN. SON AWARE, [facility]UCATED [facility] IS PREFERRED [facility]. PROVIDER AWARE.
== END 2022-02-06 23:08 | DRG 91 ==
LOC: ER 12:16 → ERHOLD 17:17 → MEDS 17:17 → PCU 02-02 15:51
PROVIDERS: Emergency Medicine; Internal Medicine; ADMIT Internal Medicine
DX: G92.8 Other toxic encephalopathy (principal); J18.9 Pneumonia, unspecified organism; D68.59 Other primary thrombophilia; E72.20 Disorder of urea cycle metabolism, unspecified; J44.0 Chronic obstructive pulmonary disease with (acute) lower respiratory infection; Z68.43 Body mass index [BMI] 50.0-59.9, adult; N39.0 Urinary tract infection, site not specified; Z51.5 Encounter for palliative care; K74.60 Unspecified cirrhosis of liver; Z66 Do not resuscitate; N18.30 Chronic kidney disease, stage 3 unspecified; R94.5 Abnormal results of liver function studies; R60.1 Generalized edema; R54 Age-related physical debility; I48.91 Unspecified atrial fibrillation; E11.22 Type 2 diabetes mellitus with diabetic chronic kidney disease; E11.649 Type 2 diabetes mellitus with hypoglycemia without coma; G31.9 Degenerative disease of nervous system, unspecified; I12.9 Hypertensive chronic kidney disease with stage 1 through stage 4 chronic kidney disease, or unspecified chronic kidney disease; M19.90 Unspecified osteoarthritis, unspecified site; K21.9 Gastro-esophageal reflux disease without esophagitis; H66.93 Otitis media, unspecified, bilateral; H70.93 Unspecified mastoiditis, bilateral; E86.0 Dehydration; E66.01 Morbid (severe) obesity due to excess calories; Z20.822 Contact with and (suspected) exposure to COVID-19; Z88.8 Allergy status to other drugs, medicaments and biological substances; Z88.7 Allergy status to serum and vaccine; Z79.899 Other long term (current) drug therapy; Z79.01 Long term (current) use of anticoagulants; Z79.4 Long term (current) use of insulin; Z79.82 Long term (current) use of aspirin; Z79.51 Long term (current) use of inhaled steroids; Z79.2 Long term (current) use of antibiotics; Z79.891 Long term (current) use of opiate analgesic; Z86.14 Personal history of Methicillin resistant Staphylococcus aureus infection; Z90.49 Acquired absence of other specified parts of digestive tract; Z98.890 Other specified postprocedural states; Z90.710 Acquired absence of both cervix and uterus; Z86.73 Personal history of transient ischemic attack (TIA), and cerebral infarction without residual deficits
CPT/HCPCS: 0202U; 0241U; 36415; 51702; 70450; 71045; 76705; 80048; 80053; 81001; 82140; 82728; 82947; 83540; 83550; 83690; 83735; 84100; 85025; 85610; 87086; 93005; 93010; 96365-59; 96375-59; 99285-25; A9270; C1751; J0456; J0696; J1610; J1630; J1815; J1940; J3430; J7030; J7042; J7050; P9047